=== PATIENT | male | born 1945 | race Caucasian/White ===

== ENCOUNTER 2020-05-29 13:34 | Outpatient (REF) | payer BC, SELFPAY ==
[2020-05-29 17:12] LABS: Alanine Aminotransferase 10 U/L (0-40); Albumin Level 4.7 g/dL (3.5-5.0); Alkaline Phosphatase 104 U/L (39-117); Anion Gap 14 (12-20); Aspartate Amino Transferase 11 U/L (5-37); Bilirubin Direct 0.3 mg/dL (0.0-0.5); Bilirubin Total 0.6 mg/dL (0.0-1.0); Blood Urea Nitrogen 28 mg/dL (9-16); Calcium 10.3 mg/dL (8.4-10.2); Carbon Dioxide 29 mmol/L (22-29); Chloride 103 mmol/L (96-108); Cholesterol 161 mg/dL; Estimated Glomerular Filt Rate 45; Glucose Fasting 134 mg/dL (60-99); HDL Cholesterol 64 mg/dL; LDL Cholesterol Calculated 67 mg/dl; Potassium 4.8 mmol/l (3.3-5.1); Sodium 141 mmol/L (135-145); Total Protein 7.9 g/dL (6.5-8.0); Triglycerides 151 mg/dL
== END 2020-05-29 13:35 | disposition home or self-care (01) ==
LOC: HO.HMGCLDS 13:34
PROVIDERS: PCP Internal Medicine; Visit Provider Internal Medicine Cardiovascular Disease
DX: E78.2 Mixed hyperlipidemia (principal)
CPT/HCPCS: 80048; 80061; 80076

== ENCOUNTER 2020-10-17 13:18 | Outpatient (REF) | payer BC, SELFPAY ==
[2020-10-17 16:31] LABS: MANUAL DIFF FLAG NO
[2020-10-17 16:35] LABS: Basophils Percent Auto 0.5 % (0-2); Eosinophils Absolute Auto 0.1 X10*3/uL (0.0-0.4); Eosinophils Percent Auto 2.3 % (0-4); Hematocrit 43.1 % (42-52); Hemoglobin 13.7 g/dl (14.0-18.0); Imm Gran Abs Auto 0.02 X10*3/uL (0.00-0.03); Imm Gran Pct Auto 0.4 % (0.0-0.4); Lymphocytes Absolute Auto 1.4 X10*3/uL (1.2-4.9); Lymphocytes Percent Auto 23.7 % (20-40); Mean Corpuscular HGB Conc 31.8 g/dl (31.0-36.0); Mean Corpuscular Hemoglobin 29.5 pg (27.0-33.0); Mean Corpuscular Volume 92.9 fL (80-98); Mean Platelet Volume 11.8 fL (9.4-12.4); Monocytes Absolute Auto 0.5 X10*3/uL (0.1-1.2); Monocytes Percent Auto 8.8 % (2-11); Neutrophils Absolute Auto 3.7 X10*3/uL (2.0-8.3); Neutrophils Percent Auto 64.3 % (45-73); Platelet Count 213 X10*3/uL (160-400); Red Blood Count 4.64 X10*6/uL (4.60-5.80); Red Cell Distribution Width 13.5 % (11.0-16.0); White Blood Count 5.7 X10*3/uL (4.8-10.8)
[2020-10-17 16:57] LABS: Alanine Aminotransferase 12 U/L (0-40); Albumin Level 4.4 g/dL (3.5-5.0); Alkaline Phosphatase 88 U/L (39-117); Anion Gap 13 (12-20); Aspartate Amino Transferase 11 U/L (5-37); Bilirubin Total 0.8 mg/dL (0.0-1.0); Blood Urea Nitrogen 24 mg/dL (9-16); Calcium 9.7 mg/dL (8.4-10.2); Carbon Dioxide 29 mmol/L (22-29); Chloride 105 mmol/L (96-108); Cholesterol 142 mg/dL; Estimated Glomerular Filt Rate 49; Glucose Fasting 123 mg/dL (60-99); HDL Cholesterol 61 mg/dL; LDL Cholesterol Calculated 63 mg/dl; Potassium 4.9 mmol/L (3.3-5.1); Sodium 142 mmol/L (135-145); Total Protein 7.3 g/dL (6.5-8.0); Triglycerides 94 mg/dL
[2020-10-17 17:11] LABS: Glucose Urine UA NEG (NEG); Leukocyte Esterase Urine NEG (NEG); Nitrite Urine NEG (NEG); PH 5.5 (5.0-8.0); Specific Gravity - Urine 1.025 (1.005-1.025); Urine Blood NEG (NEG); Urine Ketones NEG (NEG); Urine Protein TRACE MG/DL (NEG-TRACE)
[2020-10-17 17:13] LABS: Appearance Urine CLEAR; Color Urine YELLOW
[2020-10-17 17:20] LABS: Prostate Specific Antigen 2.42 ng/mL (<0.05-4.0); Thyroid Stimulating Hormone 1.04 uIU/mL (0.32-4.0); Vitamin D 25-OH Total 15.9 ng/mL (>30)
[2020-10-17 18:08] LABS: Folate 6.6 ng/mL (> or = 4.0); Vitamin B12 1709 pg/mL (200-900)
== END 2020-10-17 13:19 | disposition home or self-care (01) ==
LOC: HO.HMGCLDS 13:18
PROVIDERS: PCP Internal Medicine; Visit Provider Internal Medicine
DX: I25.10 Atherosclerotic heart disease of native coronary artery without angina pectoris (principal); I10 Essential (primary) hypertension; E78.00 Pure hypercholesterolemia, unspecified; J45.40 Moderate persistent asthma, uncomplicated; G62.9 Polyneuropathy, unspecified; Z12.5 Encounter for screening for malignant neoplasm of prostate
CPT/HCPCS: 36415; 80053; 80061; 81003; 82306; 82607; 82746; 84153; 84443; 85025

== ENCOUNTER 2022-09-02 08:38 | Outpatient (REF) | payer BC, SELFPAY ==
[2022-09-02 11:29] LABS: MANUAL DIFF FLAG NO
[2022-09-02 11:53] LABS: Basophils Absolute Auto 0.1 X10*3/uL (0.0-0.2); Basophils Percent Auto 0.9 % (0-2); Eosinophils Absolute Auto 0.2 X10*3/uL (0.0-0.4); Eosinophils Percent Auto 2.6 % (0-4); Hematocrit 43.6 % (42.0-52.0); Hemoglobin 13.8 g/dl (14.0-18.0); Imm Gran Abs Auto 0.02 X10*3/uL (0.00-0.03); Imm Gran Pct Auto 0.3 % (0.0-0.4); Lymphocytes Absolute Auto 1.5 X10*3/uL (1.2-4.9); Lymphocytes Percent Auto 25.7 % (20-40); Mean Corpuscular HGB Conc 31.7 g/dl (31.0-36.0); Mean Corpuscular Hemoglobin 29.6 pg (27.0-33.0); Mean Corpuscular Volume 93.6 fL (80.0-98.0); Mean Platelet Volume 11.8 fL (9.4-12.4); Monocytes Absolute Auto 0.5 X10*3/uL (0.1-1.2); Monocytes Percent Auto 8.7 % (2-11); Neutrophils Absolute Auto 3.6 x10*3/uL (2.0-8.3); Neutrophils Percent Auto 61.8 % (45-73); Platelet Count 227 X10*3/uL (160-400); Red Blood Count 4.66 X10*6/uL (4.60-5.80); Red Cell Distribution Width 13.4 % (11.0-16.0); White Blood Count 5.8 X10*3/uL (4.8-10.8)
[2022-09-02 12:18] LABS: Alanine Aminotransferase < 6 U/L (0-40); Albumin Level 4.2 g/dL (3.5-5.0); Alkaline Phosphatase 88 U/L (39-117); Anion Gap 13 (12-20); Aspartate Amino Transferase 8 U/L (5-37); Bilirubin Total 0.7 mg/dL (0.0-1.0); Blood Urea Nitrogen 21 mg/dL (9-16); Carbon Dioxide 27 mmol/L (22-29); Chloride 107 mmol/L (96-108); Cholesterol 135 mg/dL; Estimated Glomerular Filt Rate 51; Glucose Fasting 147 mg/dL (60-99); HDL Cholesterol 57 mg/dL; LDL Cholesterol Calculated 57 mg/dl; Potassium 3.9 mmol/L (3.3-5.1); Sodium 143 mmol/L (135-145); Total Protein 6.9 g/dL (6.5-8.0); Triglycerides 107 mg/dL
[2022-09-02 12:25] LABS: PSA,Total (Free>4and<10) 2.14 ng/mL (0.00-4.00); Thyroid Stimulating Hormone 0.99 uIU/mL (0.32-4.0)
[2022-09-02 13:45] LABS: Folate 5.8 ng/mL (> or = 4.0); Vitamin B12 1924 pg/mL (200-900)
== END 2022-09-02 08:39 | disposition home or self-care (01) ==
LOC: HO.HMGCLDS 08:38
PROVIDERS: PCP Internal Medicine; Visit Provider Internal Medicine
DX: Z13.89 Encounter for screening for other disorder (principal)
CPT/HCPCS: 36415; 80053; 80061; 82306; 82607; 82746; 84153; 84443; 85025

== ENCOUNTER 2022-12-30 13:52 | Outpatient (REF) | payer MEDICARE, BC, SELFPAY ==
--- NOTE | ~2022-12-30 | MR_ITS ---
EXAMINATION: MR BRAIN WITHOUT CONTRAST CLINICAL INFORMATION: Ataxia. COMPARISON: Head CT 09/20/2017. TECHNIQUE: Multiplanar, multisequence imaging of the brain was performed without intravenous contrast. FINDINGS: There is no acute infarction, hemorrhage, mass, or extra-axial fluid collection. A 4 mm focus of predominantly low T2 signal and associated susceptibility signal is seen within the right periatrial white matter compatible with a small cavernous malformation (series 8 image 14/25). There is no perilesional edema to suggest recent hemorrhage. Small chronic lacunar infarcts are seen in the bilateral thalami and in the right inferior cerebellum. Mild T2/FLAIR hyperintensity is seen within the cerebral white matter, presumably reflecting mild chronic microangiopathy. The ventricles and sulci are commensurate with mild degree of brain parenchymal volume loss noted. The major arterial flow voids appear preserved at the skull base. The orbits appear normal. There is paranasal sinus mucosal thickening including moderate mucosal thickening in the hypoplastic left maxillary sinus. MR/MR head/brain wo con IMPRESSION: 1. No acute infarct, mass lesion, intracranial hemorrhage, or evidence of hydrocephalus. 2. 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 No evidence of recent hemorrhage. 3. Small chronic lacunar infarcts in the bilateral thalami and right inferior cerebellum.
== END 2022-12-30 13:53 | disposition home or self-care (01) ==
LOC: HO.MRI 13:52
PROVIDERS: PCP Internal Medicine; Visit Provider Psychiatry & Neurology Neurology
DX: R27.0 Ataxia, unspecified (principal)
CPT/HCPCS: 70551

== ENCOUNTER 2023-01-07 13:01 | Outpatient (REF) | payer MEDICARE, BC, SELFPAY ==
[2023-01-07 14:56] LABS: Folate 6.2 ng/mL (> or = 4.0); Vitamin B12 1175 pg/mL (200-900)
[2023-01-11 18:18] LABS: Homocysteine 19.5 umol/L (<11.4)
[2023-01-14 16:48] LABS: Alpha-Tocopherol 13.6 mg/L (5.7-19.9); Beta-Gamma Tocopherol 1.8 mg/L (<=4.3)
== END 2023-01-07 13:02 | disposition home or self-care (01) ==
LOC: HO.LAB 13:01
PROVIDERS: PCP Internal Medicine; Visit Provider Psychiatry & Neurology Neurology
DX: G11.9 Hereditary ataxia, unspecified (principal)
CPT/HCPCS: 36415; 82607; 82746; 83090; 84446

== ENCOUNTER 2023-12-03 13:57 | Outpatient (REF) | payer MEDICARE, BC, SELFPAY ==
[2023-12-03 16:09] LABS: MANUAL DIFF FLAG NO
[2023-12-03 16:31] LABS: Basophils Absolute Auto 0.1 X10*3/uL (0.0-0.2); Basophils Percent Auto 0.9 % (0-2); Eosinophils Absolute Auto 0.2 X10*3/uL (0.0-0.4); Eosinophils Percent Auto 3.4 % (0-4); Hematocrit 41.2 % (42.0-52.0); Hemoglobin 13.2 g/dl (14.0-18.0); Imm Gran Abs Auto 0.02 X10*3/uL (0.00-0.03); Imm Gran Pct Auto 0.3 % (0.0-0.4); Lymphocytes Absolute Auto 1.6 X10*3/uL (1.2-4.9); Lymphocytes Percent Auto 24.1 % (20-40); Mean Corpuscular Hemoglobin 29.7 pg (27.0-33.0); Mean Corpuscular Volume 92.6 fL (80.0-98.0); Mean Platelet Volume 11.8 fL (9.4-12.4); Monocytes Absolute Auto 0.5 X10*3/uL (0.1-1.2); Monocytes Percent Auto 8.2 % (2-11); Neutrophils Absolute Auto 4.1 x10*3/uL (2.0-8.3); Neutrophils Percent Auto 63.1 % (45-73); Platelet Count 221 X10*3/uL (160-400); Red Blood Count 4.45 X10*6/uL (4.60-5.80); Red Cell Distribution Width 13.5 % (11.0-16.0); White Blood Count 6.6 X10*3/uL (4.8-10.8)
[2023-12-03 16:37] LABS: Alanine Aminotransferase 7 U/L (0-40); Albumin Level 3.9 g/dL (3.5-5.0); Alkaline Phosphatase 78 U/L (39-117); Anion Gap 11 (12-20); Aspartate Amino Transferase 9 U/L (5-37); Bilirubin Total 0.8 mg/dL (0.0-1.0); Blood Urea Nitrogen 24 mg/dL (9-16); Calcium 9.5 mg/dL (8.4-10.2); Carbon Dioxide 26 mmol/L (22-29); Chloride 109 mmol/L (96-108); Cholesterol 133 mg/dL (<200); Estimated Glomerular Filt Rate 54; Glucose Fasting 115 mg/dL (60-99); HDL Cholesterol 67 mg/dL (>40); LDL Cholesterol Calculated 49 mg/dL (<100); Potassium 3.8 mmol/L (3.3-5.1); Sodium 142 mmol/L (135-145); Total Protein 6.8 g/dL (6.5-8.0); Triglycerides 89 mg/dL (<150)
== END 2023-12-03 13:58 | disposition home or self-care (01) ==
LOC: HO.HMGCLDS 13:57
PROVIDERS: PCP Internal Medicine; Visit Provider Internal Medicine
DX: I25.10 Atherosclerotic heart disease of native coronary artery without angina pectoris (principal); E78.00 Pure hypercholesterolemia, unspecified; I10 Essential (primary) hypertension; J45.40 Moderate persistent asthma, uncomplicated; E55.9 Vitamin D deficiency, unspecified; R27.0 Ataxia, unspecified; G62.9 Polyneuropathy, unspecified
CPT/HCPCS: 36415; 80053; 80061; 85025

== ENCOUNTER 2024-06-02 16:59 | Emergency (ER) | payer MEDICARE, BC, SELFPAY ==
[2024-06-02 17:07] VITALS: BP 195/91; PULSE 60; O2SAT 98
--- NOTE | 2024-06-02 17:10 | ED_ITS ---
HPI - General Adult General Chief complaint: General Medical Stated complaint: rectal bleed Time Seen by Provider: 06/02/24 17:10 History of Present Illness ED Provider: Serafin GIBSON narrative: The patient is a 78-year-old male with a history of quadruple bypass and who also says he has poor balance. He says that he lives in a 2 family building on the 2nd floor. His granddaughter lives downstairs. He often eats with her. Apparently after eating a meal he got up and there seemed to be a lot of blood on his chair and his pants. There was concerned that he was having blood per rectum. They called an ambulance and he was brought to the hospital. He has no pain associated with this. He said he had a normal bowel movement this morning that was not associated with any blood. Stool was yellow in color. He has no abdominal pain. He says he takes a daily aspirin but no anticoagulation. No chest pain or shortness of breath. the patient states that he is often constipated. Related Data Allergies Allergy/AdvReac Type Severity Reaction Status Date / Time lisinopril [LISINOPRIL] Allergy Unknown UNKNOWN Verified 06/02/24 17:28 Review of Systems 2 Review of Systems: Yes all other systems are reviewed and are negative FORMERLY [facility], [facility] Social History Social History Advance Directives: No Advance Directives Information Provided: No Do you have a plan to hurt others: No Plan Physical Exam ED Vital Signs: Vital Signs - 24 hr 06/02/24 17:26 06/02/24 18:31 06/02/24 19:43 Temperature 98.1 F 98.2 F 98.0 F Pulse Rate 60 50 53 Respiratory Rate 18 14 16 Blood Pressure 162/72 H 139/58 L 129/79 Pulse Oximetry 97 98 98 Oxygen Delivery Method Room Air Room Air Room Air BMI result Body Mass Index 22.9 Const Other: The patient is a somewhat chronically ill-appearing 78-year-old male who was awake and alert and who does not appear acutely ill. He is pleasant and cooperative. HENMT Other: Face is symmetrical. Mucous membranes moist. Eyes General: appearance normal, both eyes and all related structures Neck Neck: Yes no JVD Resp Effort & Inspection: normal respiratory effort Auscultation: clear to auscultation bilaterally Cardio Rate: regular rate Rhythm: regular rhythm Heart sounds: S1 normal heart sound present and S2 normal heart sound present GI Other: Abdomen is soft and nontender The rectal exam revealed bright red blood around the anus. there was some fullness on the left side of the anus that may have been a recently ruptured hemorrhoid. On digital rectal exam there was soft yellow stool in the rectal vault. A small amount of fresh looking blood. Medical Decision Making Medical Decision Making [facility] Narrative: The patient is a 78-year-old male who had spontaneous rectal bleeding. He has no other associated symptoms. No abdominal pain, nausea, vomiting. He says he is often constipated. His stool is yellow and non melenic. I suspect the source of bleeding is immediately near the anus and is probably hemorrhoidal. the patient's hemoglobin is stable. the patient was observed for a couple of hours. I then repeated the rectal exam. There was no significant reaccumulation of blood or additional significant bleeding. He is hemodynamically stable. He last had a colonoscopy 5 years ago. I do not think he requires hospitalization. He says that Dr. Kidd is his gift wrapper. He is advised to use a stool softener over the weekend and contact the gastroenterology office early next week for prompt follow-up. He should return if he has significant ongoing bleeding. Lab Data 06/02/24 17:32 06/02/24 17:32 Labs: Lab Results 06/02/24 Range/Units 17:32 WBC 6.3 (4.8-10.8) X10*3/uL RBC 4.33 L (4.60-5.80) X10*6/uL Hgb 13.0 L (14.0-18.0) g/dl Hct 39.9 L (42.0-52.0) % MCV 92.1 (80.0-98.0) fL MCH 30.0 (27.0-33.0) pg MCHC 32.6 (31.0-36.0) g/dl RDW 14.1 (11.0-16.0) % Plt Count 209 (160-400) X10*3/uL MPV 10.3 (9.4-12.4) fL Immature Gran % (Auto) 0.3 (0.0-0.4) % Neut % (Auto) 69.0 (45-73) % Lymph % (Auto) 17.9 L (20-40) % [place] % (Auto) 10.5 (2-11) % Eos % (Auto) 1.7 (0-4) % Baso % (Auto) 0.6 (0-2) % Lymph # (Auto) 1.1 L (1.2-4.9) X10*3/uL [place] # (Auto) 0.7 (0.1-1.2) X10*3/uL Eos # (Auto) 0.1 (0.0-0.4) X10*3/uL Baso # (Auto) 0.0 (0.0-0.2) X10*3/uL Abs Immat Gran (auto) 0.02 (0.00-0.03) X10*3/uL Absolute Neuts (auto) 4.3 (2.0-8.3) x10*3/uL Absolute Nucleated RBC 0.000 (0.0-0.012) X10*3/uL Nucleated RBC % (auto) 0.0 (0.0-0.2) /100WBC Sodium 143 (135-145) mmol/L Potassium 4.0 (3.3-5.1) mmol/L Chloride 108 (96-108) mmol/L Carbon Dioxide 29 (22-29) mmol/L Anion Gap 10 L (12-20) BUN 21 H (9-16) mg/dL Creatinine 1.26 (0.5-1.4) mg/dL Estim Creat Clear Calc 46.6 Estimated GFR 55 Random Glucose 105 (60-115) mg/dL Calcium 10.1 D (8.4-10.2) mg/dL Total Bilirubin 0.5 (0.0-1.0) mg/dL Direct Bilirubin 0.2 (0.0-0.5) mg/dL AST 9 (5-37) U/L ALT 7 (0-40) U/L Alkaline Phosphatase 68 (39-117) U/L Total Protein 6.8 (6.5-8.0) g/dL Albumin 4.0 (3.5-5.0) g/dL Ethyl Alcohol < 10 mg/dL Discharge Plan Discharge Clinical Impression: Bright red blood per rectum Patient Disposition: Home, Self-Care Instructions: Hemorrhoids (ED), Rectal Bleeding (ED) Additional Instructions: I believe that the bleeding you have experienced today is coming from hemorrhoidal bleeding. It would be good for you to take something to make sure that you are keeping your stool soft. You may use Senokot S or MiraLax, both of which may be purchased [id number]. You may have some mild ongoing blood when you use the toilet over the next few days. Contact your gift wrapper and or your primary care doctor early next week to set up a follow up appointment for this problem. If you feel that your bleeding is significantly worse at any time please return to the emergency department. Referrals: Isaías Redd DO [Primary Care Provider] - (Red blood per rectum, presumably hemorrhoidal) Isaías Kidd MD [Physician] - (Bright red blood per rectum, presumably hemorrhoidal) Interventions: ED Discharge Assessment Last Done: 06/02/24 19:43 Discharge Date/Time: 06/02/24 20:08 Print Language: Chinese
[2024-06-02 17:26] VITALS: BP 162/72; PULSE 60; RESP 18; TEMP 36.7; O2SAT 97; BMI 22.9
[2024-06-02 17:46] LABS: MANUAL DIFF FLAG NO
[2024-06-02 17:52] LABS: Basophils Percent Auto 0.6 % (0-2); Eosinophils Absolute Auto 0.1 X10*3/uL (0.0-0.4); Eosinophils Percent Auto 1.7 % (0-4); Hematocrit 39.9 % (42.0-52.0); Imm Gran Abs Auto 0.02 X10*3/uL (0.00-0.03); Imm Gran Pct Auto 0.3 % (0.0-0.4); Lymphocytes Absolute Auto 1.1 X10*3/uL (1.2-4.9); Lymphocytes Percent Auto 17.9 % (20-40); Mean Corpuscular HGB Conc 32.6 g/dl (31.0-36.0); Mean Corpuscular Volume 92.1 fL (80.0-98.0); Mean Platelet Volume 10.3 fL (9.4-12.4); Monocytes Absolute Auto 0.7 X10*3/uL (0.1-1.2); Monocytes Percent Auto 10.5 % (2-11); Neutrophils Absolute Auto 4.3 x10*3/uL (2.0-8.3); Platelet Count 209 X10*3/uL (160-400); Red Blood Count 4.33 X10*6/uL (4.60-5.80); Red Cell Distribution Width 14.1 % (11.0-16.0); White Blood Count 6.3 X10*3/uL (4.8-10.8)
[2024-06-02 18:17] LABS: Alanine Aminotransferase 7 U/L (0-40); Alkaline Phosphatase 68 U/L (39-117); Anion Gap 10 (12-20); Aspartate Amino Transferase 9 U/L (5-37); Bilirubin Direct 0.2 mg/dL (0.0-0.5); Bilirubin Total 0.5 mg/dL (0.0-1.0); Blood Urea Nitrogen 21 mg/dL (9-16); Calcium 10.1 mg/dL (8.4-10.2); Carbon Dioxide 29 mmol/L (22-29); Chloride 108 mmol/L (96-108); Creatinine Clr Calc Pharmacy 46.6; Estimated Glomerular Filt Rate 55; Ethanol < 10 mg/dL; Glucose Random 105 mg/dL (60-115); Sodium 143 mmol/L (135-145); Total Protein 6.8 g/dL (6.5-8.0)
[2024-06-02 18:31] VITALS: BP 139/58; PULSE 50; RESP 14; TEMP 36.8; O2SAT 98
[2024-06-02 19:43] VITALS: BP 129/79; PULSE 53; RESP 16; TEMP 36.7; O2SAT 98
== END 2024-06-02 20:08 | disposition home or self-care (01) ==
PROVIDERS: Emergency Provider Emergency Medicine; PCP Internal Medicine
DX: K62.5 Hemorrhage of anus and rectum (principal)
CPT/HCPCS: 36415; 80048; 80076; 80307; 85025; 99283

== ENCOUNTER 2024-09-06 09:33 | Outpatient (AMB) | payer MEDICARE, BC, SELFPAY ==
--- NOTE | 2024-09-06 09:46 | MHC.PC.OV ---
Vital Signs 09/06/24 09:55 Height 5 ft 8 in Weight 141 lb BMI 21.4 BP 120/46 L Blood Pressure Location Rt brachial Pulse 66 Pulse Source Pulse Oximeter Temp 97.3 F Pulse Oximetry (%) 98 Intake Visit Reasons: Pre Op Dr Valle Intake Note: pre op clearence For Dr. Valle Allergies lisinopril [LISINOPRIL] Allergy (Unknown, Verified 09/06/24 12:06) UNKNOWN Medication List - Last Reconciled 09/06/24 by Sandie Carlos PA-C amlodipine 5 mg PO DAILY lovastatin 20 mg PO DAILY memantine 5 mg PO DAILY metoprolol succinate ER 50 mg PO DAILY Physical exam (Primary Care) Vital Signs: Last Vital Signs Temp 97.3 F 09/06/24 09:55 Pulse 66 09/06/24 09:55 BP 120/46 L 09/06/24 09:55 Pulse Ox 98 09/06/24 09:55 BP 120/46. Patient denies any cardiac related complaints. Condition is stable patient currently on antihypertensive medication. No changes. BMI result Body Mass Index 21.4 Patient has normal BMI of 21. Coding Level of Care Code New Pt Level 4 (99510) Complex EM visit Add On G2211 Diagnoses Follow-up exam, 3-6 months since previous exam Z09 CAD (coronary atherosclerotic disease) I25.10 Hypertension I10 Hyperlipidemia E78.5 Asthma J45.909 Vitamin D deficiency E55.9 Ataxia R27.0 Cerebellar atrophy G31.9 Neuropathy G62.9 Assessment & Plan Assessment & Plan (1) Follow-up exam, 3-6 months since previous exam: Code(s): Z09 - Encounter for follow-up examination after completed treatment for conditions other than malignant neoplasm Category: Medical Plan: Patient here for cataract clearance. Patient has a normal exam. Outpatient labs and EKG ordered. Will obtain records from [facility] Dr. Aguiar patient's project management manager pathophysiology. Will continue to monitor. (2) CAD (coronary atherosclerotic disease): Code(s): I25.10 - Atherosclerotic heart disease of [place] coronary artery without angina pectoris Category: Medical Plan: This condition is chronic and stable. Patient being followed by project management manager. Will retrieve records. Will continue to monitor. (3) Hypertension: Code(s): I10 - Essential (primary) hypertension Category: Medical Plan: This condition is chronic and stable. Blood pressure at goal 120/46. Patient currently on metoprolol, amlodipine taking as prescribed denies any complaints at this time. Will continue to monitor. (4) Hyperlipidemia: Code(s): E78.5 - Hyperlipidemia, unspecified Category: Medical Plan: Patient currently on lovastatin 20 mg taking as prescribed daily denies any complaints. Patient had normal triglyceride and lipid panel on 12/03/2023. Condition is chronic and stable will continue to monitor (5) Asthma: Code(s): J45.909 - Unspecified asthma, uncomplicated Category: Medical Plan: Patient denies any acute asthma related complaints. Condition is chronic and stable will continue to monitor. (6) Vitamin D deficiency: Code(s): E55.9 - Vitamin D deficiency, unspecified Category: Medical Plan: Last labs were in 2022. Will repeat. Condition is chronic and stable will continue to monitor. Patient not currently they vitamin-D supplement. 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 Patient utilizing standard walker. Will continue to monitor. (8) Cerebellar atrophy: Code(s): G31.9 - Degenerative disease of nervous system, unspecified Category: Medical Plan: This is chronic and stable. Patient utilizing standard walker. Will continue to monitor. (9) Neuropathy: Code(s): G62.9 - Polyneuropathy, unspecified Category: Medical Plan: This is chronic and stable. Will continue to monitor. Plan Plan - Schedule basic labs and EKG prior to surgery. - Obtain recent EKG and clearance note from project management manager if possible to avoid repeat testing. - Discuss the potential linkage and consult relevant specialists regarding exposure and cerebellar atrophy if necessary. - Manage hypertension and hyperlipidemia with established regimen of metoprolol, amlodipine, and lovastatin. - Proceed with the planned cataract surgery on September 18. Orders: Orders Comprehensive [place]. Panel Fast Today H26.9 - Unspecified cataract Complete Blood Count Auto Diff Today H26.9 - Unspecified cataract Liver Panel Today H26.9 - Unspecified cataract ECG 12 lead EKG Today H26.9 - Unspecified cataract, Z01.818 - Encounter for other preprocedural examination Vitamin B12 and Folate Today Z09 - Encounter for follow-up examination after completed treatment for conditions other than malignant neoplasm TSH reflex Free T4 Today Z09 - Encounter for follow-up examination after completed treatment for conditions other than malignant neoplasm Magnesium Today H26.9 - Unspecified cataract Lipid Panel Today H26.9 - Unspecified cataract Vitamin D 25-OH Total Today Z09 - Encounter for follow-up examination after completed treatment for conditions other than malignant neoplasm Patient Instructions: Patient Instructions - Proceed to the hospital for blood tests and EKG at your earliest convenience. - Monitor blood pressure regularly due to chronic hypertension. - Avoid excessive cheese to manage occasional constipation. - Follow through with cataract surgery plans and scheduled postoperative visits. - Discuss exposure concerns further if necessary for VA disability claims. Scribe Plan - Not visible on output: History of Present Illness The patient is a 78-year-old male presenting with a request for preoperative clearance for cataract surgery. He has known cataracts, particularly affecting the left eye, scheduled for removal on September 18. His visual impairment is noted as significant due to the severity of cataracts. The patient has a history of hypertension managed with metoprolol and amlodipine, showing stable blood pressure readings and no current symptoms such as chest pain or shortness of breath. Additionally, he is treated with a cholesterol-lowering agent, likely for hyperlipidemia, confirmed with atorvastatin intake. No necessary refills are required at this moment. He underwent an EKG recently with the project management manager in [place], which showed no significant abnormalities, with initial findings suggesting no need for intervention. The patient also reports longstanding cerebellar atrophy, potentially attributed to occupational exposure to jet fuel during his service. Symptoms related to this include chronic dizziness without any progressive deterioration mentioned. He discerns occasional constipation when consuming cheese but denies other gastrointestinal issues. Past conditions include previous bigeminy noted on monitoring but currently deemed insignificant. 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 - Family: Accompanied by granddaughter; family is actively involved in his care. - Nutritional Intake: Reports cheese consumption sometimes leads to constipation. - Functional Status: Experiences chronic dizziness due to cerebellar atrophy, potentially affecting balance. - Past Service: Concern about exposure to [employer] [place] and related chemicals with potential long-term health implications; previously stationed in [facility]. - Medication: Not on blood thinners; uses aspirin. Review of Systems - Cardiovascular: Denies chest pain, denies shortness of breath, denies palpitations. - Gastrointestinal: Reports constipation associated with cheese intake. - Neurological: Reports chronic dizziness. - Vision: Reports significant visual impairment due to cataracts. Physical Exam Appearance: Alert. Oriented X3. No acute distress. Head: Normal external exam. Normocephalic. Atraumatic. Eyes: Pupils are equal, round, and reactive to light. Extraocular movements intact. Conjunctiva and sclera normal. Eyelids normal. Blurry vision noted due to cataracts in the left eye. Ears: External auditory canal normal. Tympanic membranes normal. Throat: Pharynx normal. Uvula midline. Moist mucous membranes. Neck: Normal inspection. Neck supple. Full range of motion. No adenopathy. Thyroid Normal. No meningeal signs. No neck mass noted. Cardiovascular: Normal heart rate and rhythm. Heart sound normal. No murmurs noted. Pulses normal throughout. Blood pressure noted to be a little low at 124. Respiratory: No respiratory distress. Painless inspiration. Breath sounds normal. No wheezes/rales/rhonchi noted. Chest nontender. No accessory muscle usage noted or decreased air movement noted. Abdomen: Soft and nontender. No distention noted. No organomegaly noted. No visible injury noted. Back: No costovertebral angle tenderness. Full range of motion noted. Skin: Skin warm and dry. Normal skin color. Normal skin turgor. No rashes/lesions/lacerations noted. Extremities: No lower extremity edema. Extremities exhibit normal range of motion. Extremities nontender. Neuro: Oriented X 3. No motor deficit. No sensory deficit. Reflexes normal. Results - Labs: Patient had labs on 06/02/2024 which were discussed. Patient has chronic anemia. All other labs are within normal limits. Patient had lipid panel profile on 12/03/2023 which was within normal limits. - Tests and Diagnostics: Recent EKG performed by a project management manager in [place] showed no significant abnormalities. Plan - Schedule basic labs and EKG prior to surgery. - Obtain recent EKG and clearance note from project management manager if possible to avoid repeat testing. - Discuss the potential linkage and consult relevant specialists regarding exposure and cerebellar atrophy if necessary. - Manage hypertension and hyperlipidemia with established regimen of metoprolol, amlodipine, and lovastatin. - Proceed with the planned cataract surgery on September 18. Patient was informed and verbally consented to the use of an ambient scribe for clinic note documentation during this visit. Discussion Notes During our discussion, I clarified the need for preoperative clearance due to his scheduled cataract surgery. We reviewed the importance of achieving an optimal state of health before the procedure, including controlling his blood pressure and lipid levels. I emphasized the utility of obtaining recent cardiac tests and notes from his project management manager to streamline preoperative preparations. We briefly discussed the history of cerebellar atrophy and chemical exposure, acknowledging the complexity of resolution regarding exposure effects and the potential impacts on health. Specific follow-up visits will be coordinated respectively regarding his surgery and financial support from the [facility]. Consent was presumed generally for progression upon the understanding of the surgical and medical plans detailed. Patient Instructions - Proceed to the hospital for blood tests and EKG at your earliest convenience. - Monitor blood pressure regularly due to chronic hypertension. - Avoid excessive cheese to manage occasional constipation. - Follow through with cataract surgery plans and scheduled postoperative visits. - Discuss exposure concerns further if necessary for VA disability claims.
[2024-09-06 09:55] VITALS: BP 120/46; PULSE 66; TEMP 36.3; O2SAT 98; BMI 21.4
== END 2024-09-06 10:31 | disposition home or self-care (01) ==
LOC: HO.HMCSH 09:33
PROVIDERS: PCP Internal Medicine; Visit Provider Physician Assistant Medical
DX: Z09 Encounter for follow-up examination after completed treatment for conditions other than malignant neoplasm (principal); I25.10 Atherosclerotic heart disease of native coronary artery without angina pectoris; I10 Essential (primary) hypertension; E78.5 Hyperlipidemia, unspecified; J45.909 Unspecified asthma, uncomplicated; E55.9 Vitamin D deficiency, unspecified; R27.0 Ataxia, unspecified; G31.9 Degenerative disease of nervous system, unspecified; G62.9 Polyneuropathy, unspecified

== ENCOUNTER → 2024-09-06 09:33 | Outpatient (BNVA) | payer MEDICARE, BC, SELFPAY | PROVIDERS: PCP Internal Medicine; Visit Provider Physician Assistant Medical | DX: Z01.818 Encounter for other preprocedural examination (principal); I25.10 Atherosclerotic heart disease of native coronary artery without angina pectoris; I10 Essential (primary) hypertension; E78.5 Hyperlipidemia, unspecified; J45.909 Unspecified asthma, uncomplicated; E55.9 Vitamin D deficiency, unspecified; R27.0 Ataxia, unspecified; G31.9 Degenerative disease of nervous system, unspecified; G62.9 Polyneuropathy, unspecified; Z09 Encounter for follow-up examination after completed treatment for conditions other than malignant neoplasm | CPT/HCPCS: 99202 ==

== ENCOUNTER 2024-09-12 12:35 | Outpatient (REF) | payer MEDICARE, BC, SELFPAY ==
--- NOTE | 2024-09-12 12:41 | ECG_ITS ---
Test Reason : PREOP Blood Pressure : */* mmHG Vent. Rate : 63 BPM Atrial Rate : 63 BPM P-R Int : 206 ms QRS Dur : 110 ms QT Int : 400 ms P-R-T Axes : * -25 65 degrees QTcB Int : 409 ms Sinus rhythm with occasional Premature ventricular complexes Minimal voltage criteria for LVH, may be normal variant ( R in aVL ) Borderline ECG When compared with ECG of 07-Aug-2003 11:43, Premature ventricular complexes are now Present QRS axis Shifted left ST now depressed in Inferior leads PATIENT SITTING UP IN WHEEL CHAIR. Referred By: Sandie Carlos Electronically Signed By: JAD ESTRELLA MD
[2024-09-12 12:56] LABS: MANUAL DIFF FLAG NO
[2024-09-12 13:17] LABS: Basophils Absolute Auto 0.1 X10*3/uL (0.0-0.2); Basophils Percent Auto 0.8 % (0-2); Eosinophils Absolute Auto 0.2 X10*3/uL (0.0-0.4); Eosinophils Percent Auto 2.7 % (0-4); Hematocrit 40.1 % (42.0-52.0); Hemoglobin 13.1 g/dl (14.0-18.0); Imm Gran Abs Auto 0.03 X10*3/uL (0.00-0.03); Imm Gran Pct Auto 0.5 % (0.0-0.4); Lymphocytes Percent Auto 16.5 % (20-40); Mean Corpuscular HGB Conc 32.7 g/dl (31.0-36.0); Mean Corpuscular Hemoglobin 30.3 pg (27.0-33.0); Mean Corpuscular Volume 92.8 fL (80.0-98.0); Mean Platelet Volume 10.3 fL (9.4-12.4); Monocytes Absolute Auto 0.5 X10*3/uL (0.1-1.2); Monocytes Percent Auto 7.3 % (2-11); Neutrophils Absolute Auto 4.5 x10*3/uL (2.0-8.3); Neutrophils Percent Auto 72.2 % (45-73); Platelet Count 236 X10*3/uL (160-400); Red Blood Count 4.32 X10*6/uL (4.60-5.80); Red Cell Distribution Width 13.9 % (11.0-16.0); White Blood Count 6.2 X10*3/uL (4.8-10.8)
--- OUTSIDE RECORDS SUMMARY | 2024-09-12 14:11 | XMS_ITS ---
Author Organization Isaías Redd DO [facility] Address [address], [place] [id number] Care Team Providers Care Blanket Maker Name Role Phone Isaías Redd Primary Care Provider REASON FOR VISIT pre-operative Encounters Encounter Location Date Provider Diagnosis Isaías Redd DO [address] [id number] 09/06/2024 Isaías Redd PLAN OF TREATMENT No Information
--- OUTSIDE RECORDS SUMMARY | 2024-09-12 14:11 | XMS_ITS ---
Author Organization Isaías Redd DO, FACP Address [address], [place] [id number] Care Team Providers Care Bench Molder Apprentice Name Role Phone Isaías Redd Primary Care Provider ALLERGIES Allergen (clinical drug ingredient) Drug/Non Drug Allergy documented on EMR Reaction Allergy Type Onset Date Status lisinopril Lisinopril cough Drug Allergy Activ e REASON FOR VISIT 6 month f/u, Follow up hypertension, hypercholesterolemia MEDICATIONS Medication SIG (Take, Route, Frequency, Duration) Notes Start Date End Date Status Albuterol Sulfate HFA 108 (90 Base) MCG/ACT 2 puffs as needed Inhalation every 4 hrs Active Vitamin D 50 MCG (2000 UT) 1 capsule Ora lly Once a day Active Cyanocobalamin 1000 MCG 1 tablet Orally Once a day Active Probiotic 250 MG 1 capsule Orally Onc e a day Active Amoxicillin 500 MG 4 capsules one time Orally Once a day 09/24/2015 Active Aspirin 81 MG 1 tablet Orally Once a day Active Lovastatin 20 MG 1 tablet with the evening meal Orally Once a day Active Singulair 10 MG 1 tablet in the even ing Orally Once a day Active Mometasone Furoate 110 MCG/INH 2 puffs Inhalation Twice a day Active Metoprolol Succinate ER 50 MG 1 tablet Orally Once a day Active amLODIPine Besylate 5 MG 1 tablet Orally Once a day Active SOCIAL HISTORY Tobacco Use: Social History Observation Description Date Details (start date - stop date) Former Smoker NA - NA Sex Assigned At : Social History Observation Description Sex Assigned At Unknown Tobacco Use/Smoking Question Answer Notes Patient is a former smoker How long has it been since y ou last smoked? > 10 years Additional Findings: Tobacco Non-User Fo rmer smoker, currently using no form of tobacco Alcohol Screen Question Answer Notes Did you have a drink containing alcohol in the p ast year? No Points 0 Interpretation Negative VITAL SIGNS BMI 22.80 kg/m2 06/06/2024 Blood pressure systolic 134 mm Hg 06/06/20 24 Blood pressure diastolic 72 mm Hg 024 Height 68 in 06/06/2024 Weight 150 lbs 06/06/2024 Encounters Encounter Location Date Provider Diagnosis Isaías Redd DO, [address] [id number] 06/06/2024 Isaías Redd Coronary artery dise ase involving [place] coronary artery of [place] heart without angina pectoris I25.10 ; Essential hypertension I10 ; Hypercholesterolemia E78.00 ; Moderate persistent asthma without complication J45.40 ; Vitamin D deficiency E55.9 ; Ataxia R27.0 and Neuropathy G62.9 ASSESSMENTS Encounter Date Diagnosis Assessment Notes Treatment Notes Treatment Clinical Notes 06/06/2024 Coronary artery dise ase involving [place] coronary artery of [place] heart without angina pectoris (ICD-10 - I25.10) 06/06/2024 Essential hypertensi on (ICD-10 - I10) 06/06/2024 Hypercholesterolemia (ICD-10 - E78.00) 06/06/2024 Moderate persistent asthma without complication (ICD-10 - J45.40) 06/06/2024 Vitamin D deficiency (ICD-10 - E55.9) 06/06/2024 Ataxia (ICD-10 - R27.0) 06/06/2024 Neuropathy (ICD-10 - G62.9) PLAN OF TREATMENT Medication Medication Name Sig Start Date Stop Date Notes Albuterol Sulfate HFA 108 (9 0 Base) MCG/ACT 2 puffs as needed Inhalation every 4 hrs Vitamin D 50 MCG (2000 UT) 1 capsule Orally Once a day Cyanocobalamin 1000 MCG 1 tablet Orally Once a day Probiotic 250 MG 1 capsule Orally Once a day Amoxicillin 500 MG 4 capsules one time Orally Once a day 09/24/2015 Aspirin 81 MG 1 tablet Orally Once a day Lovastatin 20 MG 1 tablet with the ev ening meal Orally Once a day Singulair 10 MG 1 tablet in the even ing Orally Once a day Mometasone Furoate 110 MCG/INH 2 puffs I nhalation Twice a day Metoprolol Succinate ER 50 MG 1 tablet Orally Once a day amLODIPine Besylate 5 MG 1 tablet Orally Once a day Next Appt Details Follow Up: 6 Months, Reason: follow up visit Progress Notes * Examination Category Sub-Category Detail Notes General Examination GENERAL APPEARANCE: in no ac barrow distress, well developed, well nourished HEAD: normocephalic, atrau matic HEART: no murmurs, regular rate and rhythm, S1, S2 normal, frequent extrasystole LUNGS: clear to auscultatio n bilaterally ABDOMEN: normal, bowel sounds present, soft, nontender, nondistended NEUROLOGIC: gait ataxic SKIN: warm and dry EXTREMITIES: no edema PSYCH: alert, oriented, cog nitive function intact
--- OUTSIDE RECORDS SUMMARY | 2024-09-12 14:11 | XMS_ITS ---
Author Organization [facility] Address [address], [place] [id number] Care Team Providers Care Meeting Specialist Name Role Phone Isaías Redd Primary Care Provider REASON FOR VISIT FYI only Encounters Encounter Location Date Provider Diagnosis Isaías Redd DO, [address] [phone] 12/08/2023 Isaías Redd PLAN OF TREATMENT No Information
[2024-09-12 14:21] LABS: Alanine Aminotransferase < 6 U/L (0-40); Albumin Level 3.7 g/dL (3.5-5.0); Alkaline Phosphatase 79 U/L (39-117); Anion Gap 10 (12-20); Aspartate Amino Transferase 11 U/L (5-37); Bilirubin Direct 0.2 mg/dL (0.0-0.5); Bilirubin Total 0.5 mg/dL (0.0-1.0); Blood Urea Nitrogen 19 mg/dL (9-16); Calcium 8.9 mg/dL (8.4-10.2); Carbon Dioxide 28 mmol/L (22-29); Chloride 109 mmol/L (96-108); Cholesterol 116 mg/dL (<200); Estimated Glomerular Filt Rate 55; Glucose Fasting 131 mg/dL (60-99); HDL Cholesterol 67 mg/dL (>40); LDL Cholesterol Calculated 39 mg/dL (<100); Magnesium 1.9 mg/dL (1.6-2.6); Potassium 4.1 mmol/L (3.3-5.1); Sodium 143 mmol/L (135-145); Total Protein 6.8 g/dL (6.5-8.0); Triglycerides 51 mg/dL (<150)
[2024-09-12 14:23] LABS: TSH reflex Free T4 0.57 uIU/mL (0.32-4.0); Vitamin D 25-OH Total 43.4 ng/mL (>30)
[2024-09-12 14:26] LABS: Folate 8.2 ng/mL (> or = 4.0); Vitamin B12 955 pg/mL (200-900)
== END 2024-09-12 12:36 | disposition home or self-care (01) ==
LOC: HO.LAB 12:35
PROVIDERS: PCP Physician Assistant Medical; Visit Provider Physician Assistant Medical
DX: Z01.818 Encounter for other preprocedural examination (principal); I49.3 Ventricular premature depolarization; H26.9 Unspecified cataract; Z09 Encounter for follow-up examination after completed treatment for conditions other than malignant neoplasm
CPT/HCPCS: 36415; 80053; 80061; 80076; 82248; 82306; 82607; 82746; 83735; 84443; 85025; 93005

== ENCOUNTER → 2024-09-12 12:41 | Outpatient (BNV) | payer MEDICARE, BC, SELFPAY | PROVIDERS: PCP Physician Assistant Medical; Visit Provider Internal Medicine Cardiovascular Disease | DX: Z01.818 Encounter for other preprocedural examination (principal) | CPT/HCPCS: 93010 ==

== ENCOUNTER 2024-09-14 17:30 | Emergency (ER) | payer MEDICARE, BC, SELFPAY ==
--- NOTE | ~2024-09-14 | XR_ITS ---
CLINICAL HISTORY: fall Two views of the left humerus. Findings: Patient positioning mildly limits the study. No definite acute fracture or malalignment is seen. Impression: No definite acute fractures. This document has been electronically signed by: David Nobles MD on 09/14/2024 19:03:49
--- NOTE | ~2024-09-14 | XR_ITS ---
CLINICAL HISTORY: fall Three views left shoulder. Findings: There are left 3rd and 4th rib fractures that could be acute. Otherwise no acute fracture is seen. No dislocation is identified. 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 Impression: Left 3rd and 4th rib fractures could be acute. This document has been electronically signed by: David Nobles MD on 09/14/2024 19:06:39
--- NOTE | ~2024-09-14 | CT_ITS ---
CLINICAL HISTORY: L rib fx seen on XR, fall CT of the chest without contrast. No comparison. Findings: No pleural or pericardial effusion. Previous coronary bypass. The ascending aorta is upper limits of normal in diameter. Emphysema. No pneumothorax. There is ill-defined atelectasis in the lower lobes. Cholecystectomy. There are acute left 3rd through 6th rib fractures. There is an acute fracture through the base of the left coracoid process. Impression: Acute fractures of the left 3rd through 6th ribs. Fracture base of the left coracoid process. Ascending aorta upper limits of normal in diameter. Emphysema. This document has been electronically signed by: David Nobles MD on 09/14/2024 20:43:44
[2024-09-14 17:40] VITALS: BP 168/88; BP 172/90; PULSE 70; PULSE 81; RESP 18; TEMP 37; O2SAT 98; O2SAT 99; BMI 21.3
--- NOTE | 2024-09-14 17:45 | ECG_ITS ---
Test Reason : L SHOULDER PAIN Blood Pressure : */* mmHG Vent. Rate : 70 BPM Atrial Rate : 70 BPM P-R Int : 248 ms QRS Dur : 108 ms QT Int : 378 ms P-R-T Axes : * -32 64 degrees QTcB Int : 408 ms Sinus rhythm with 1st degree A-V block with Premature supraventricular complexes Left axis deviation Moderate voltage criteria for LVH, may be normal variant ( R in aVL , [place] product ) Nonspecific ST abnormality Abnormal ECG When compared with ECG of 12-Sep-2024 12:58, Premature ventricular complexes are no longer Present Premature supraventricular complexes are now Present WA interval has increased Referred By: Generic ED Physician Electronically Signed By: JAD ESTRELLA MD
--- NOTE | 2024-09-14 17:55 | ED.EXTPRO ---
HPI - Extremity Problem General Chief complaint: Extremity Injury, Upper Stated complaint: DIZZINESS, SHOULDER PAIN POST FALL 11 DAYS AGO Time Seen by Provider: 09/14/24 17:44 Source: patient, EMS, RN notes reviewed and old records reviewed Mode of arrival: EMS History of Present Illness ED Provider: Jerri Tran PA-C HPI Narrative: 78-year-old male with a past medical history of ataxia, asthma, HLD, HTN, CAD, cerebral atrophy, presenting to the ED via EMS complaining of left shoulder pain s/p mechanical trip and fall 11 days ago at home. States tripped and fell over his dog, denies symptoms prior to fall off, reports chronically off balance, unchanged. States landed on left shoulder, denies head trauma or LOC. Denies anticoagulation use. Denies injury to other area, headache, neck/back pain, CP/SOB, weakness. Related Data Home Medications ?Medication ?Instructions ?Recorded ?Confirmed amlodipine 5 mg tablet 5 mg PO DAILY 09/06/24 09/06/24 lovastatin 20 mg tablet 20 mg PO DAILY 09/06/24 09/06/24 memantine 5 mg tablet 5 mg PO DAILY 09/06/24 09/06/24 Previous Rx's ?Medication ?Instructions ?Recorded metoprolol succinate 50 mg 50 mg PO DAILY #90 tabs 09/04/24 tablet,extended release 24 hr acetaminophen 500 mg tablet 500 mg PO Q6H PRN fever or pain 09/14/24 (Tylenol Extra Strength) #14 tabs ibuprofen 800 mg tablet 800 mg PO Q8H PRN pain #14 tabs 09/14/24 lidocaine 5 % topical patch 1 patch topical DAILY PRN pain #30 09/14/24 (Lidoderm) ea Allergies Allergy/AdvReac Type Severity Reaction Status Date / Time lisinopril [LISINOPRIL] Allergy Unknown UNKNOWN Verified 09/14/24 17:45 Review of Systems Review of Systems: Yes all other systems are reviewed and are negative Constitutional: Constitutional: Reports as per [facility] Past Medical History Attestation statement: The following information was validated with the patient. Source: old records reviewed Social History Social History Smoked in Last 30 Days: No Use of substances other than those prescribed or required for medical reasons: No Advance Directives: No Advance Directives Information Provided: No Do you have a plan to hurt others: No Plan Physical Exam Vital Signs: Vital Signs: Last Vital Signs Temp 98.2 F 09/14/24 20:09 Pulse 68 09/14/24 20:09 Resp 16 09/14/24 20:09 BP 163/72 H 09/14/24 20:09 Pulse Ox 98 09/14/24 20:09 O2 Del Method Room Air 09/14/24 20:09 BMI result Body Mass Index 21.3 Const: General: cooperative, healthy appearing and no acute distress Orientation/consciousness: patient oriented x3 Limitations: no limitations HEENT: Head: Yes normal to inspection and Yes atraumatic Ears: hearing grossly normal bilaterally General nose exam: Normal external nose present Face and sinus: Yes normal facial exam Eyes: General: appearance normal, both eyes and all related structures EOM: EOMs intact bilaterally Neck: Neck: Yes normal visual inspection and Yes no meningeal signs Resp: Effort & Inspection: normal respiratory effort and no respiratory distress Cardio: Rate: regular rate Heart sounds: S1 normal heart sound present and S2 normal heart sound present GI: Inspection: Yes normal to inspection Palpation (GI): Soft to palpation, nontender, no guarding and not rigid Back/Spine/Pelvis: Other: No midline cervical/thoracic/lumbar spinous tenderness/step-off or deformity Skin: Rashes: no rashes Wounds: no wounds Neuro: General: patient oriented x3, tone normal and no meningeal signs Cranial nerves: Yes CN's II-XII intact bilaterally Gait exam (Neuro): Normal gait present Extrem: Other: Left shoulder without appreciable deformity. Mildly tender to palpation. Limited ROM secondary to pain. Neurovascularly intact distally. No erythema or warmth General: Yes normal to inspection Course Course Course Narrative: XR humerus LT Impression: No definite acute fractures. XR shoulder LT min 2V Impression: Left 3rd and 4th rib fractures could be acute > On this racebook writer's view of x-ray appears like there could be fracture. Case discussed with ED attending Dr. Banuelos who also looked at imaging & recommended obtaining CT for further eval. Will obtain CT shoulder and chest to evaluate shoulder/ribs >> patient agreeable to plan. No appreciable rib tenderness on physical exam CT chest wo IV con Impression: Acute fractures of the left 3rd through 6th ribs. Fracture base of the left coracoid process. Ascending aorta upper limits of normal in diameter. Emphysema > patient placed in sling > case discussed with trauma surgeon Dr. Ulloa at [facility] who recommended performing incentive spirometer. States with patient this far out from injury unlikely needs admission. Will perform incentive spirometer and re-consult. -patient successfully performed 2000-2500ml 10x with incentive spirometer. This was discussed with Dr. Ulloa at [facility] who states patient should be safe for discharge home. Family is at bedside, family and patient feel comfortable with plan of discharge. Patient will be in sling. Recommended close orthopedic follow-up. Patient only agreeable to take ibuprofen/Tylenol and lidocaine patches for pain Results discussed with patient including worrisome signs and symptoms and strict return precautions, and when to return to the emergency department. They verbalized understanding and feel safe for discharge at this time. Medications Administered Discontinued Medications Generic Name Dose Route Start Last Admin Trade Name Freq PRN Reason Stop Dose Admin Cyclobenzaprine HCl 5 mg 09/14/24 17:59 09/14/24 18:41 Cyclobenzaprine Hcl 5 Mg Tablet PO 09/14/24 18:00 5 mg ONCE ONE Administration Medical Decision Making Medical Decision Making MDM Narrative: 78-year-old male with a past medical history of ataxia, asthma, HLD, HTN, CAD, cerebral atrophy, presenting to the ED via EMS complaining of left shoulder pain s/p mechanical trip and fall 11 days ago at home. On exam vital signs stable, NAD, nontoxic appearing, physical exam as noted above. Concern for fracture vs tendon/ligamental or rotator cuff injury. Lower suspicion for atypical ACS. No evidence of septic joint/arthritis. Plan: EKG, CXR, pain control, re-evaluate Please refer to course for remaining clinical decision making, interpretation of labs/imaging results, and discussions with consultants and/or family members. Differential Diagnosis Differential Diagnoses: The differential diagnosis associated with the presentation includes As above Admission/Observation Consideration of admission/observation: Escalation of care including admission/observation considered Independent Interpretation I performed an independent interpretation of an: EKG and Plain X-Ray Radiology Impression Discussion of test interpretation with radiology: I have reviewed the radiologist's reading. Independent Historian Clinical information obtained from an independent historian. History obtained from or confirmed by: EMS External Record Review External record reviewed: Inpatient record, Office record, Outpatient record, Prior outpatient labs, Prior outpatient radiology, Primary care record and Outside ED record Tests considered The following testing was considered but not selected: As above Prescription Management I considered prescription management with: Pain Medication Chronic Conditions Patient?s care impacted by: Other Social Determinants Patient?s care significantly limited by Social Determinants of Health including: Other Social Determinant of Health Discharge Plan Discharge Clinical Impression: Multiple fractures of ribs, Closed coracoid process fracture Patient Disposition: Home, Self-Care Instructions: Arm Fracture in Adults (ED), Rib Fracture (ED) Additional Instructions: You have multiple rib fractures of your left 3rd through 6th ribs as well as your left coracoid process You need to wear sling, you may take it off to sleep, and take off to shower Please take ibuprofen, Tylenol, and lidocaine patches for pain You need to use incentive spirometer at least 3 times daily as discussed in the emergency department Please have close follow up with Orthopedics and your primary care doctor. Call tomorrow to make an appointment If her pain persists or worsens/becomes unbearable, you develop cough, fever, shortness of breath return to the emergency room Prescriptions: New ibuprofen 800 mg tablet 800 mg PO Q8H PRN (Reason: pain) Qty: 14 0RF acetaminophen [Tylenol Extra Strength] 500 mg tablet 500 mg PO Q6H PRN (Reason: fever or pain) Qty: 14 0RF lidocaine [Lidoderm] 5 % adhesive patch,medicated 1 patch topical DAILY MDD remove after 12 hours PRN (Reason: pain) Qty: 30 0RF Rx Instructions: leave on most painful area for up to 12 hrs No Action metoprolol succinate 50 mg tablet extended release 24 hr 50 mg PO DAILY Qty: 90 1RF memantine 5 mg tablet 5 mg PO DAILY lovastatin 20 mg tablet 20 mg PO DAILY amlodipine 5 mg tablet 5 mg PO DAILY Referrals: [facility] [Provider Group] - 5 days Physician,Unknown J [Primary Care Provider] - Print Language: Uzbek
[2024-09-14] MEDS: Cyclobenzaprine HCl 5 MG TABLET PO (18:41)
[2024-09-14 18:42] VITALS: BP 168/88; PULSE 73; RESP 18; TEMP 36.8; O2SAT 98
--- NOTE | 2024-09-14 18:43 | PC.NURSE ---
follows commands. family at bedside. states pt is at baseline. axox3. no deformity noted.
[2024-09-14 18:55] VITALS: BP 154/72; PULSE 69; RESP 18; O2SAT 98
[2024-09-14 20:09] VITALS: BP 163/72; PULSE 68; RESP 16; TEMP 36.8; O2SAT 98
[2024-09-14 22:07] VITALS: BP 172/66; PULSE 83; RESP 16; TEMP 36.8; O2SAT 97
[2024-09-14 22:29] VITALS: BP 172/66; PULSE 83; RESP 16; TEMP 36.8; O2SAT 97
== END 2024-09-14 22:30 | disposition home or self-care (01) ==
PROVIDERS: Emergency Provider Emergency Medicine Emergency Medical Services
DX: S22.42XA Multiple fractures of ribs, left side, initial encounter for closed fracture (principal); S42.92XA Fracture of left shoulder girdle, part unspecified, initial encounter for closed fracture; W01.0XXA Fall on same level from slipping, tripping and stumbling without subsequent striking against object, initial encounter; Y93.9 Activity, unspecified; Y92.9 Unspecified place or not applicable; Y99.9 Unspecified external cause status; M25.512 Pain in left shoulder
CPT/HCPCS: 71250; 73030; 73060; 93005; 99285

== ENCOUNTER → 2024-09-14 17:45 | Outpatient (BNV) | payer MEDICARE, BC, SELFPAY | PROVIDERS: Emergency Provider Emergency Medicine Emergency Medical Services; Visit Provider Internal Medicine Cardiovascular Disease | DX: R94.31 Abnormal electrocardiogram [ECG] [EKG] (principal) | CPT/HCPCS: 93010 ==

== ENCOUNTER → 2024-09-14 18:30 | Outpatient (BNV) | payer MEDICARE, BC, SELFPAY | PROVIDERS: Emergency Provider Emergency Medicine Emergency Medical Services; Visit Provider Radiology Diagnostic Radiology | DX: S22.42XA Multiple fractures of ribs, left side, initial encounter for closed fracture (principal); J43.9 Emphysema, unspecified; M25.512 Pain in left shoulder; S42.132A Displaced fracture of coracoid process, left shoulder, initial encounter for closed fracture | CPT/HCPCS: 71250; 73030; 73060 ==

== ENCOUNTER 2024-09-27 15:58 | Outpatient (REF) | payer MEDICARE, BC, SELFPAY | END 2024-09-27 15:59 | disposition home or self-care (01) | LOC: HO.HOSX 15:58 | PROVIDERS: Visit Provider Physician Assistant | DX: Z13.89 Encounter for screening for other disorder (principal) ==

== ENCOUNTER 2024-11-03 17:43 | Emergency (ER) | payer MEDICARE, BC, SELFPAY ==
--- NOTE | ~2024-11-03 | CT_ITS ---
CLINICAL HISTORY: fall, head strike, pain CT cervical spine without contrast Comparison: None Findings: Normal vertebral body alignment. Multilevel degenerative changes. No acute fractures or dislocations. Visualized intracranial contents are unremarkable. No cervical fluid collections or masses. Lung apices are clear. IMPRESSION: 1. No acute cervical spine injury. This document has been electronically signed by: Debra Mondragon MD on 11/03/2024 20:28:51
--- NOTE | ~2024-11-03 | XR_ITS ---
CLINICAL HISTORY: fall, injury 2 view left forearm Comparison: None Findings: No fractures or dislocations. No joint effusion. Surgical clips in the dorsal forearm. IMPRESSION: No acute fracture. This document has been electronically signed by: Debra Mondragon MD on 11/03/2024 20:11:26
--- NOTE | ~2024-11-03 | XR_ITS ---
CLINICAL HISTORY: fall, injury 2 view right forearm Comparison: None Findings: Lucency in the region of the trapezium and trapezoid at the base of the 2nd metatarsal, possibly artifact from overlapping bones however nondisplaced fracture can not be excluded. Correlate for point tenderness. Radius and ulna are intact. No dislocation. IMPRESSION: Lucency in the region of the trapezium and trapezoid at the base of the 2nd metatarsal, possibly artifact from overlapping bones however nondisplaced fracture can not be excluded. Correlate for point tenderness. This document has been electronically signed by: Debra Mondragon MD on 11/03/2024 20:09:37
--- NOTE | ~2024-11-03 | CT_ITS ---
CLINICAL HISTORY: fall, head strike, pain CT head without contrast Comparison: MR/SR - MR HEAD/BRAIN WO CON - 12/30/22 14:[address]/SR - BRAIN WO IV CONTRAST [id number] - 09/20/17 11:16 EST Findings: No intra-axial mass, midline shift, hydrocephalus, or acute hemorrhage. Diffuse volume loss. Periventricular and subcortical white matter hypoattenuation likely chronic small-vessel ischemic changes. Intracranial atherosclerosis. Mucosal thickening in the ethmoid air cells. Left frontal scalp and periorbital hematoma. No skull fracture. IMPRESSION: No acute intracranial findings. Left frontal scalp and periorbital hematoma. No acute fracture. This document has been electronically signed by: Debra Mondragon MD on 11/03/2024 20:31:22
[2024-11-03 17:52] VITALS: BP 152/52; PULSE 59; O2SAT 99
[2024-11-03 17:56] VITALS: BMI 21.4
[2024-11-03 18:00] VITALS: BP 148/62; PULSE 60; RESP 14; TEMP 36.8; O2SAT 98
--- NOTE | 2024-11-03 18:23 | ED_ITS ---
HPI - General Adult General Chief complaint: Fall Stated complaint: fall, unk loc, +head strike, on thinners Time Seen by Provider: 11/03/24 18:23 Source: patient, family (patient's granddaughter) and EMS Mode of arrival: EMS Limitations: no limitations History of Present Illness ED Provider: Kim Castro PA-C HPI narrative: Patient is a 78 year old male with a past medical history of CAD (previous CABG), HTN, HLD, cerebellar atrophy for which he follows with a neurologist, and asthma who presents to [place] ED via EMS after an unwitnessed fall. He states that the last thing he recalls is walking through his kitchen. He does not recall how he fell. + Head strike. Unknown LOC. Not on blood thinners. Patients granddaughter who lives with patient is present who states she heard patient fall and found him lying on the kitchen floor. She subsequently called EMS. He is currently complaining of pain over the left orbit where there is obvious swelling. Also endorses some mild pain and bruising to the bilateral forearms. Denies neck or back pain. Denies dizziness, chest pain, shortness of breath, nausea, or vomiting. Relieving factors: none Exacerbating factors: none Associated symptoms: denies other symptoms Treatments prior to arrival: none Related Data Home Medications ?Medication ?Instructions ?Recorded ?Confirmed memantine 5 mg tablet 5 mg PO DAILY 09/06/24 09/06/24 Saccharomyces boulardii 250 mg 250 mg PO BID 10/30/24 capsule (Digest Probiotic (S.boulardii)) albuterol sulfate 90 mcg/actuation 2 inh inhalation Q4H PRN 10/30/24 breath activated powder inhaler amoxicillin 500 mg capsule 500 mg PO QID 10/30/24 aspirin 81 mg tablet,delayed 81 mg PO DAILY 10/30/24 release (Adult Low Dose Aspirin) cholecalciferol (vitamin D3) 50 50 mcg PO DAILY 10/30/24 mcg (2,000 unit) capsule cyanocobalamin (vitamin B-12) 1,000 mcg PO DAILY 10/30/24 1,000 mcg tablet mometasone 110 mcg/actuation(30 2 inh inhalation DAILY 10/30/24 doses) breath activated powder inhaler montelukast 10 mg tablet 10 mg PO BEDTIME 10/30/24 (Singulair) Previous Rx's ?Medication ?Instructions ?Recorded metoprolol succinate 50 mg 50 mg PO DAILY #90 tabs 09/04/24 tablet,extended release 24 hr acetaminophen 500 mg tablet 500 mg PO Q6H PRN fever or pain 09/14/24 (Tylenol Extra Strength) #14 tabs ibuprofen 800 mg tablet 800 mg PO Q8H PRN pain #14 tabs 09/14/24 lidocaine 5 % topical patch 1 patch topical DAILY PRN pain #30 09/14/24 (Lidoderm) ea amlodipine 5 mg tablet 5 mg PO DAILY #90 tabs 10/09/24 lovastatin 20 mg tablet 20 mg PO DAILY #90 tabs 10/09/24 Allergies Allergy/AdvReac Type Severity Reaction Status Date / Time lisinopril [LISINOPRIL] Allergy Unknown UNKNOWN Verified 11/03/24 17:58 Review of Systems 2 Constitutional: Constitutional: Reports no additional constitutional complaints, Denies chills, Denies fever(s) and Denies night sweats Eyes: Eyes: Reports no additional eye complaints, Denies blurry vision, Denies change in vision, Denies diplopia, Denies eye discharge and Denies loss of vision Comments: left orbit bruising / pain ENT: Denies dizziness and Denies neck pain Cardiovascular: Cardiovascular: Reports no additional cardiovascular complaints, Denies chest pain, Denies lightheadedness and Denies dyspnea Respiratory: Respiratory: Reports no additional respiratory complaints and Denies dyspnea Gastrointestinal: Gastrointestinal: Reports no additional gastrointestinal complaints, Denies abdominal pain, Denies melena, Denies hematochezia, Denies change in bowel habits and Denies change in stool character Genitourinary: Genitourinary: Reports no additional male genitourinary complaints, Denies hematuria, Denies oliguria, Denies difficulty urinating, Denies dysuria, Denies urinary frequency, Denies urinary hesitancy, Denies urinary incontinence and Denies urinary urgency Musculoskeletal: Musculoskeletal: Reports no additional musculoskeletal complaints, Reports as per HPI, Denies back pain, Denies neck pain, Denies numbness and Denies tingling Comments: bilateral forearm bruising Neurologic: Denies dizziness, Denies loss of vision, Denies numbness and Denies tingling Psychiatric: Psychiatric: Reports no additional psychiatric complaints Endocrine: Endocrine: Reports no additional endocrine complaints Hematologic/Lymphatic: Hematologic/Lymphatic: Reports no additional hematologic/lymphatic complaints Allergic/Immunologic: Allergic/Immunologic: Reports no additional allergic/immunologic complaints [facility] Past Medical History Attestation statement: The following information was validated with the patient. (all information validated with the patient's [facility]) Source: old records reviewed, obtained from family (patient's granddaughter provided additional history and confirmed the history provided by the patient.) and nursing notes reviewed Social History Social History Unable to assess alcohol history related to: Unknown Smoked in Last 30 Days: No Use of substances other than those prescribed or required for medical reasons: Unknown Advance Directives: No Advance Directives Information Provided: No Do you have a plan to hurt others: No Plan Physical Exam ED Vital Signs: Vital Signs - 24 hr 11/03/24 18:00 11/03/24 20:20 Temperature 98.2 F 98.8 F Pulse Rate 60 57 Respiratory Rate 14 18 Blood Pressure 148/62 H 143/52 H Pulse Oximetry 98 99 Oxygen Delivery Method Room Air Room Air BMI result Body Mass Index 21.4 Const General: cooperative, no acute distress, alert and awake Nutritional Appearance: well nourished Orientation/consciousness: patient oriented x3 Limitations: no limitations [facility] Head: Yes normal to inspection, No No palpable skull fracture present, Yes normocephalic, No Avery's sign, Yes hematoma, No raccoon eyes and No scalp tenderness Ears: hearing grossly normal bilaterally and external ears normal General nose exam: Normal external nose present, no nasal discharge noted and no epistaxis Face and sinus: Yes normal facial exam, No abrasion and No laceration Mouth: Normal oral and palatal mucosa present, no drooling and no muffled voice Eyes Periorbital: periorbital findings abnormal (Edema over the left orbit) Eyelids: Yes eyelids normal Conjunctivae: conjunctivae normal Pupils: Equal, round and reactive pupils present EOM: EOMs intact bilaterally and Nystagmus present (horizontal - chronic for the patient secondary to cerebellar atrophy) Neck Neck: Yes normal visual inspection, Yes full ROM and Yes no lymphadenopathy Chest Chest palpation & inspection: normal inspection of the chest Resp Effort & Inspection: normal respiratory effort and able to speak in complete sentences Auscultation: clear to auscultation bilaterally Cardio Rate: regular rate Rhythm: regular rhythm Heart sounds: S1 normal heart sound present, S2 normal heart sound present, no gallops, no murmurs and no rubs GI Inspection: Yes normal to inspection Palpation (GI): Soft to palpation, not firm, nontender, no guarding and not rigid Back/Spine/Pelvis Back: No back tenderness Cervical Spine: No Cervical spine tenderness and No step off deformity Thoracic/Lumbar Spine: thoracic and lumbar spine normal to inspection, No thoracic spinal tenderness and No lumbar spinal tenderness Pelvis: pain with anterior-posterior compression and pain with lateral compression Neuro General: patient oriented x3, moves all extremities and CN's II-XI intact bilaterally Cranial nerves: Yes Equal, round and reactive pupils present and Yes Nystagmus present (horizontal - chronic for the patient secondary to cerebellar atrophy) Cognition (Neuro): normal cognition Motor exam (neuro): 5/5 motor strength present throughout Extrem Other: minimal bruising present to the bilatearl forearms General: Yes full ROM and Yes capillary refill normal Psych Appearance: grossly normal Mental Status: mental status grossly normal Affect: normal affect Attitude: cooperative Thought process: Normal thought process present Thought content: Normal thought content present Insight: Good insight present (Psych) Medical Decision Making Medical Decision Making MDM Narrative: Patient is a 78 year old male with a past medical history of CAD (previous CABG), HTN, HLD, cerebellar atrophy for which he follows with a neurologist, and asthma who presents to [place] ED via EMS after an unwitnessed fall. Patient's physical exam was as noted in the physical exam portion of this note. Patient's blood work was unremarkable. Patient's EKG was unremarkable. Patient's bilateral forearm x-rays, CT head, and CT c-spine showed no acute process. I explained my physical exam findings as well as all test results to the patient and the patient's granddaughter. I answered all questions asked by the patient and the patient's granddaughter. Patient was able to ambulate while in the department without issue. I had an extensive conversation with the patient and his granddaughter about discharging the patient home. They stated they both felt comfortable with the patient going home and the patient's granddaughter stated she would keep close watch of the patient. I stressed the importance of the patient taking his medication as directed (either prescribed or as the over the counter packaging recommends). I stressed the importance of the patient following up with his primary care provider and his established neurologist. I stressed the importance of the patient returning to the emergency department immediately if his symptoms were to worsen or if he were to develop any dizziness, shortness of breath, difficulty breathing, chest pain, blurry vision, loss of vision, nausea, vomiting, abdominal pain, fever, chills, back pain, or any other complaints. Patient and the patient's granddaughter verbalized agreement and understanding with this treatment plan and discharge. Differential Diagnosis Differential Diagnoses: The differential diagnosis associated with the presentation includes Fall Poor balance at baseline Admission/Observation Consideration of admission/observation: Escalation of care including admission/observation considered Patient would have been admitted to the hospital had his work up had any findings where hospital admission was appropriate and his clinical presentation warranted hospital admission. Lab Data [facility] Lab Attestation statement: I reviewed the patient's lab results. My interpretation of these results are in the [facility] Rationale portion of this note. 11/03/24 18:44 11/03/24 18:44 Labs: Lab Results 11/03/24 11/03/24 Range/Units 18:44 18:49 WBC 6.4 (4.8-10.8) X10*3/uL RBC 4.02 L (4.60-5.80) X10*6/uL Hgb 12.4 L (14.0-18.0) g/dl Hct 36.5 L (42.0-52.0) % MCV 90.8 (80.0-98.0) fL MCH 30.8 (27.0-33.0) pg MCHC 34.0 (31.0-36.0) g/dl RDW 13.5 (11.0-16.0) % Plt Count 218 (160-400) X10*3/uL MPV 10.5 (9.4-12.4) fL Immature Gran % (Auto) 0.3 (0.0-0.4) % Neut % (Auto) 76.8 H (45-73) % Lymph % (Auto) 12.3 L (20-40) % Peach % (Auto) 7.2 (2-11) % Eos % (Auto) 2.6 (0-4) % Baso % (Auto) 0.8 (0-2) % Lymph # (Auto) 0.8 L (1.2-4.9) X10*3/uL Peach # (Auto) 0.5 (0.1-1.2) X10*3/uL Eos # (Auto) 0.2 (0.0-0.4) X10*3/uL Baso # (Auto) 0.1 (0.0-0.2) X10*3/uL Abs Immat Gran (auto) 0.02 (0.00-0.03) X10*3/uL Absolute Neuts (auto) 4.9 (2.0-8.3) x10*3/uL Absolute Nucleated RBC 0.000 (0.0-0.012) X10*3/uL Nucleated RBC % (auto) 0.0 (0.0-0.2) /100WBC PT 10.9 (10.9-12.4) SEC INR 0.9 (0.9-1.1) Sodium 143 (135-145) mmol/L Potassium 3.9 (3.3-5.1) mmol/L Chloride 108 (96-108) mmol/L Carbon Dioxide 29 (22-29) mmol/L Anion Gap 10 L (12-20) BUN 21 H (9-16) mg/dL Creatinine 1.31 (0.5-1.4) mg/dL Estim Creat Clear Calc 42.0 Estimated GFR 53 Random Glucose 178 H (60-115) mg/dL Calcium 9.0 (8.4-10.2) mg/dL Magnesium 1.8 (1.6-2.6) mg/dL Total Bilirubin 0.6 (0.0-1.0) mg/dL AST 13 (5-37) U/L ALT 8 (0-40) U/L Alkaline Phosphatase 92 (39-117) U/L Troponin I High Sens 15.6 (<3.5-35.0) ng/L Total Protein 6.8 (6.5-8.0) g/dL Albumin 3.8 (3.5-5.0) g/dL Influenza Type A (PCR) NEGATIVE (Negative) Influenza Type B (PCR) NEGATIVE (Negative) RSV RNA Qual (PCR) NEGATIVE (Negative) SARS-CoV-2 RNA (RT-PCR) NEGATIVE (Negative) Independent Interpretation I performed an independent interpretation of an: EKG, Plain X-Ray and CT Scan Interpretation: My interpretation is in agreement with the radiologist's impression of these imaging studies. L CLINICAL HISTORY: fall, injury 2 view right forearm Comparison: None Findings: Lucency in the region of the trapezium and trapezoid at the base of the 2nd metatarsal, possibly artifact from overlapping bones however nondisplaced fracture can not be excluded. Correlate for point tenderness. Radius and ulna are intact. No dislocation. IMPRESSION: Lucency in the region of the trapezium and trapezoid at the base of the 2nd metatarsal, possibly artifact from overlapping bones however nondisplaced fracture can not be excluded. Correlate for point tenderness. This document has been electronically signed by: Debra Mondragon MD on 11/03/2024 20:09:37 Dictated By: Debra Mondragon MD Signed By: Electronically signed by Debra Mondragon MD 11/03/242010 CLINICAL HISTORY: fall, injury 2 view left forearm Comparison: None Findings: No fractures or dislocations. No joint effusion. Surgical clips in the dorsal forearm. IMPRESSION: No acute fracture. This document has been electronically signed by: Debra Mondragon MD on 11/03/2024 20:11:26 Dictated By: Debra Mondragon MD Signed By: Electronically signed by Debra Mondragon MD 11/03/242011 Report Number: [id number]: Total DLP = 876.00 mGy-cm CLINICAL HISTORY: fall, head strike, pain CT cervical spine without contrast Comparison: None Findings: Normal vertebral body alignment. Multilevel degenerative changes. No acute fractures or dislocations. Visualized intracranial contents are unremarkable. No cervical fluid collections or masses. Lung apices are clear. IMPRESSION: 1. No acute cervical spine injury. This document has been electronically signed by: Debra Mondragon MD on 11/03/2024 20:28:51 Dictated By: Debra Mondragon MD Signed By: Electronically signed by Debra Mondragon MD 11/03/242028 Report Number: [id number]: Total DLP = 876.00 mGy-cm CLINICAL HISTORY: fall, head strike, pain CT head without contrast Comparison: MR/SR - MR HEAD/BRAIN WO CON - 12/30/22 14:[address]/SR - BRAIN WO IV CONTRAST [id number] - 09/20/17 11:16 EST Findings: No intra-axial mass, midline shift, hydrocephalus, or acute hemorrhage. Diffuse volume loss. Periventricular and subcortical white matter hypoattenuation likely chronic small-vessel ischemic changes. Intracranial atherosclerosis. Mucosal thickening in the ethmoid air cells. Left frontal scalp and periorbital hematoma. No skull fracture. IMPRESSION: No acute intracranial findings. Left frontal scalp and periorbital hematoma. No acute fracture. This document has been electronically signed by: Debra Mondragon MD on 11/03/2024 20:31:22 Dictated By: Debra Mondragon MD Signed By: Electronically signed by Debra Mondragon MD 11/03/242032 I independently interpreted this EKG and am in agreement with the below findings: Vent. Rate: 59 BPM Atrial Rate: 59 BPM P-R Int: 240 ms QRS Dur: 120 ms QT Int: 418 ms P-R-T Axes: 61 -28 81 degrees QTcB Int: 413 ms Sinus bradycardia with sinus arrhythmia with 1st degree A-V block Left ventricular hypertrophy with QRS widening and repolarization abnormality When compared with ECG of 14-Sep-2024 18:14, Premature supraventricular complexes are no longer Present DD/ [id number] Radiology Impression Discussion of test interpretation with radiology: I have reviewed the radiologist's reading. Independent Historian Clinical information obtained from an independent historian. History obtained from or confirmed by: EMS (EMS provided additional history and confirmed the history provided by the patient.) and Other (patient's granddaughter provided additional history and confirmed the history provided by the patient.) Discharge Plan Discharge Clinical Impression: Fall, Bruise of face Patient Disposition: Home, Self-Care Instructions: Fall Prevention for Older Adults (ED), Facial Contusion (ED) Additional Instructions: Your imaging was unremarkable. Your lab work was reassuring. Follow up with your primary care provider. Return to the emergency department immediately if your symptoms worsen or if you develop any numbness, tingling, dizziness, shortness of breath, difficulty breathing, chest pain, blurry vision, loss of vision, nausea, vomiting, abdominal pain, fever, chills, back pain, or any other complaints. Please see the information below about our Patient Portal. If you are not yet enrolled in the [facility] Patient Portal, you will receive an enrollment email invitation following your visit to any [facility] care setting. You may also self-enroll in the Patient Portal by visiting our website: [email or web address] The following information is required to access the Patient Portal: - Your [facility] Medical Record Number - Your personal home email address (must match what is in your electronic medical record, Registration staff can assist with this) - Name - Date of Capabilities of the Patient Portal: - Message some providers - View upcoming appointments - Access your health summary, medical history, and visit history - View current conditions and allergies - View procedure and lab results - View your medications, including guidelines, side effects, and precautions - Complete pre-appointment questionnaires requested by your provider - Ready summary reports of your office visits and procedures To access the Patient Portal Mobile [employer], follow these directions: - Search [employer] in the [employer] Store or [employer] ([employer]) Store - Download the [employer] - Search for [facility] - Enter your login/password Prescriptions: No Action metoprolol succinate 50 mg tablet extended release 24 hr 50 mg PO DAILY Qty: 90 1RF amlodipine 5 mg tablet 5 mg PO DAILY Qty: 90 1RF lovastatin 20 mg tablet 20 mg PO DAILY Qty: 90 1RF aspirin [Adult Low Dose Aspirin] 81 mg tablet,delayed release (DR/EC) 81 mg PO DAILY montelukast [Singulair] 10 mg tablet 10 mg PO BEDTIME mometasone 110 mcg/ actuation (30) aerosol powdr breath activated 2 inh inhalation DAILY Rx Instructions: administer 1 hour before bedtime albuterol sulfate 90 mcg/actuation aerosol powdr breath activated 2 inh inhalation Q4H PRN cholecalciferol (vitamin D3) 50 mcg (2,000 unit) capsule 50 mcg PO DAILY cyanocobalamin (vitamin B-12) 1,000 mcg tablet 1,000 mcg PO DAILY Saccharomyces boulardii [Digest Probiotic (S.boulardii)] 250 mg capsule 250 mg PO BID amoxicillin 500 mg capsule 500 mg PO QID ibuprofen 800 mg tablet 800 mg PO Q8H PRN (Reason: pain) Qty: 14 0RF acetaminophen [Tylenol Extra Strength] 500 mg tablet 500 mg PO Q6H PRN (Reason: fever or pain) Qty: 14 0RF lidocaine [Lidoderm] 5 % adhesive patch,medicated 1 patch topical DAILY MDD remove after 12 hours PRN (Reason: pain) Qty: 30 0RF Rx Instructions: leave on most painful area for up to 12 hrs memantine 5 mg tablet 5 mg PO DAILY Referrals: [facility] Family Medicine [Provider Group] (Call to establish and follow up with a primary care provider. IF you already have a primary care provider, please follow up with them.) [facility] [Provider Group] (Call to establish and follow up with a primary care provider. IF you already have a primary care provider, please follow up with them.) [facility] Primary [facility] [Provider Group] (Call to establish and follow up with a primary care provider. IF you already have a primary care provider, please follow up with them.) [facility] Primary [facility] [Provider Group] (Call to establish and follow up with a primary care provider. IF you already have a primary care provider, please follow up with them.) Interventions: ED Discharge Assessment Last Done: 11/03/24 21:16 Print Language: Greenlandic
--- NOTE | 2024-11-03 18:24 | ECG_ITS ---
Test Reason : weakness Blood Pressure : */* mmHG Vent. Rate : 59 BPM Atrial Rate : 59 BPM P-R Int : 240 ms QRS Dur : 120 ms QT Int : 418 ms P-R-T Axes : 61 -28 81 degrees QTcB Int : 413 ms Sinus bradycardia with sinus arrhythmia with 1st degree A-V block Left ventricular hypertrophy with QRS widening and repolarization abnormality ( R in aVL , Walker product ) Abnormal ECG When compared with ECG of 14-Sep-2024 18:14, Premature supraventricular complexes are no longer Present Referred By: Kim Castro Electronically Signed By: DANIELLE SEARS
[2024-11-03 18:48] LABS: MANUAL DIFF FLAG NO
[2024-11-03 18:50] LABS: Basophils Absolute Auto 0.1 X10*3/uL (0.0-0.2); Basophils Percent Auto 0.8 % (0-2); Eosinophils Absolute Auto 0.2 X10*3/uL (0.0-0.4); Eosinophils Percent Auto 2.6 % (0-4); Hematocrit 36.5 % (42.0-52.0); Hemoglobin 12.4 g/dl (14.0-18.0); Imm Gran Abs Auto 0.02 X10*3/uL (0.00-0.03); Imm Gran Pct Auto 0.3 % (0.0-0.4); Lymphocytes Absolute Auto 0.8 X10*3/uL (1.2-4.9); Lymphocytes Percent Auto 12.3 % (20-40); Mean Corpuscular Hemoglobin 30.8 pg (27.0-33.0); Mean Corpuscular Volume 90.8 fL (80.0-98.0); Mean Platelet Volume 10.5 fL (9.4-12.4); Monocytes Absolute Auto 0.5 X10*3/uL (0.1-1.2); Monocytes Percent Auto 7.2 % (2-11); Neutrophils Absolute Auto 4.9 x10*3/uL (2.0-8.3); Neutrophils Percent Auto 76.8 % (45-73); Platelet Count 218 X10*3/uL (160-400); Red Blood Count 4.02 X10*6/uL (4.60-5.80); Red Cell Distribution Width 13.5 % (11.0-16.0); White Blood Count 6.4 X10*3/uL (4.8-10.8)
[2024-11-03 19:00] LABS: INTERNATIONAL NORM RATIO 0.9 (0.9-1.1); Prothrombin Time 10.9 SEC (10.9-12.4)
[2024-11-03 19:11] LABS: Alanine Aminotransferase 8 U/L (0-40); Albumin Level 3.8 g/dL (3.5-5.0); Alkaline Phosphatase 92 U/L (39-117); Anion Gap 10 (12-20); Aspartate Amino Transferase 13 U/L (5-37); Bilirubin Total 0.6 mg/dL (0.0-1.0); Blood Urea Nitrogen 21 mg/dL (9-16); Carbon Dioxide 29 mmol/L (22-29); Chloride 108 mmol/L (96-108); Estimated Glomerular Filt Rate 53; Glucose Random 178 mg/dL (60-115); Magnesium 1.8 mg/dL (1.6-2.6); Potassium 3.9 mmol/L (3.3-5.1); Sodium 143 mmol/L (135-145); Total Protein 6.8 g/dL (6.5-8.0)
[2024-11-03 19:18] LABS: Troponin-I High Sensitivity 15.6 ng/L (<3.5-35.0)
[2024-11-03 19:28] LABS: Influenza A PCR NEGATIVE (Negative); Influenza B PCR NEGATIVE (Negative); Resp Syncy Virus RNA Qual PCR NEGATIVE (Negative); SARS COV2 PCR INHOUSE NEGATIVE (Negative)
[2024-11-03 20:20] VITALS: BP 143/52; PULSE 57; RESP 18; TEMP 37.1; O2SAT 99
[2024-11-03 21:16] VITALS: BP 143/52; PULSE 57; RESP 18; TEMP 37.1; O2SAT 99
== END 2024-11-03 21:22 | disposition home or self-care (01) ==
PROVIDERS: Physician Assistant Medical; Emergency Provider Emergency Medicine
DX: S00.83XA Contusion of other part of head, initial encounter (principal); I25.10 Atherosclerotic heart disease of native coronary artery without angina pectoris; R00.1 Bradycardia, unspecified; I49.8 Other specified cardiac arrhythmias; R94.31 Abnormal electrocardiogram [ECG] [EKG]; M79.602 Pain in left arm; M79.601 Pain in right arm; R51.9 Headache, unspecified; M54.2 Cervicalgia; I10 Essential (primary) hypertension; W19.XXXA Unspecified fall, initial encounter; Y93.01 Activity, walking, marching and hiking; Y92.000 Kitchen of unspecified non-institutional (private) residence as the place of occurrence of the external cause; Y99.8 Other external cause status; Z03.818 Encounter for observation for suspected exposure to other biological agents ruled out; Z79.01 Long term (current) use of anticoagulants; Z79.899 Other long term (current) drug therapy
CPT/HCPCS: 0241U; 70450; 72125; 73090; 80053; 83735; 84484; 85025; 85610; 93005; 99284; 99285

== ENCOUNTER → 2024-11-03 18:24 | Outpatient (BNV) | payer MEDICARE, BC, SELFPAY | PROVIDERS: Emergency Provider Emergency Medicine; Visit Provider Internal Medicine | DX: I44.0 Atrioventricular block, first degree (principal); I51.7 Cardiomegaly; I49.9 Cardiac arrhythmia, unspecified; R00.1 Bradycardia, unspecified | CPT/HCPCS: 93010 ==

== ENCOUNTER → 2024-11-03 18:24 | Outpatient (BNV) | payer MEDICARE, BC, SELFPAY | PROVIDERS: Emergency Provider Emergency Medicine; Visit Provider Radiology Diagnostic Radiology | DX: M54.2 Cervicalgia (principal); S00.03XA Contusion of scalp, initial encounter; S00.12XA Contusion of left eyelid and periocular area, initial encounter; R51.9 Headache, unspecified; S59.911A Unspecified injury of right forearm, initial encounter; S59.912A Unspecified injury of left forearm, initial encounter | CPT/HCPCS: 70450; 72125; 73090 ==

== ENCOUNTER 2024-11-07 10:37 | Outpatient (AMB) | payer MEDICARE, BC, SELFPAY ==
--- NOTE | 2024-11-07 10:39 | MHC.PC.OV ---
Vital Signs 11/07/24 10:47 Height 5 ft 8 in Weight 146 lb BMI 22.2 BP 160/54 H Blood Pressure Location Rt brachial Pulse 59 Pulse Source Pulse Oximeter Temp 97.1 F Pulse Oximetry (%) 98 Intake Visit Reasons: Medical Clearence Intake Note: had a fall last wednesday but no other issues Allergies lisinopril [LISINOPRIL] Allergy (Unknown, Verified 11/13/24 08:11) UNKNOWN Medication List - Last Reconciled 11/07/24 by Sandie Carlos PA-C acetaminophen (Tylenol Extra Strength) 500 mg PO Q6H PRN albuterol sulfate 90 mcg/actuation 2 inhalations inhalation Q4H PRN amlodipine 5 mg PO DAILY amoxicillin 500 mg PO QID aspirin (Adult Low Dose Aspirin) 81 mg PO DAILY cholecalciferol (vitamin D3) 50 mcg PO DAILY cranberry 500 mg PO BID cyanocobalamin (vitamin B-12) 1,000 mcg PO DAILY ibuprofen 800 mg PO Q8H PRN lovastatin 20 mg PO DAILY memantine 5 mg PO DAILY metoprolol succinate ER 50 mg PO DAILY mometasone 2 inhalations inhalation DAILY montelukast (Singulair) 10 mg PO BEDTIME Saccharomyces boulardii (Digest Probiotic (S.boulardii)) 250 mg PO BID PFSH Medical History (Updated 11/08/24 @ 10:12 by Brii Bravo RN) Mixed hyperlipidemia CAD (coronary artery disease) CVA (cerebral vascular accident) Atherosclerosis of [place] coronary artery of [place] heart without angina pectoris LVH (left ventricular hypertrophy) First degree AV block Traumatic subconjunctival hemorrhage of left eye Cataract Preoperative clearance Renal cell cancer Urinary retention DVT (deep venous thrombosis) Carcinoid tumor Fall Surgical History (Updated 11/08/24 @ 10:12 by Brii Bravo RN) S/P CABG x 5 History of coronary artery stent placement History of left nephrectomy Social History Unable to assess alcohol history related to: Unknown Patient Tobacco Use Status: Former Tobacco user Advance Directives: No Advance Directives Information Provided: Yes Advance Directives on File: No Nutrition Risks: No Nutritional Risk Physical exam (Primary Care) Vital Signs: Last Vital Signs Temp 97.1 F 11/07/24 10:47 Pulse 59 11/07/24 10:47 BP 160/54 H 11/07/24 10:47 Pulse Ox 98 11/07/24 10:47 BMI result Body Mass Index 22.2 Coding Level of Care Code Est Pt Level 4 (39110) Complex EM visit Add On G2211 Diagnoses Preoperative clearance Z01.818 Cataract H26.9 Fall W19.XXXA Traumatic subconjunctival hemorrhage of left eye H11.32 First degree AV block I44.0 LVH (left ventricular hypertrophy) I51.7 Hypertension I10 Assessment & Plan Assessment & Plan (1) Preoperative clearance: Code(s): Z01.818 - Encounter for other preprocedural examination Category: Medical Plan: Patient presenting for preop clearance for bilateral cataract surgery. He is scheduled to have his 1st surgery with Dr. Valle at [facility] on November 13 for opposite eye on November 27. Patient is currently on aspirin he was instructed to discontinue aspirin 72 hours prior to the surgery and 48 hours after surgery then he can restart after the 48 hours. Patient with granddaughter at bedside understand agree this plan. (2) Cataract: Code(s): H26.9 - Unspecified cataract Category: Medical Plan: Patient presenting for preop clearance for bilateral cataract surgery. He is scheduled to have his 1st surgery with Dr. Valle at [facility] on November 13 for opposite eye on November 27. Patient is currently on aspirin he was instructed to discontinue aspirin 72 hours prior to the surgery and 48 hours after surgery then he can restart after the 48 hours. Patient with granddaughter at bedside understand agree this plan. (3) Fall: Code(s): W19.XXXA - Unspecified fall, initial encounter Category: Medical Plan: Patient was seen in the emergency department on 11/03/2024 and had normal labs, normal CT scan. EKG was sinus bradycardia with sinus arrhythmia with first-degree AV block with LVH with QRS widening and repolarization abnormality. Otherwise no acute ischemic change are noted. Condition is stable continue to monitor. (4) Traumatic subconjunctival hemorrhage of left eye: Code(s): H11.32 - Conjunctival hemorrhage, left eye Category: Medical Plan: Patient with traumatic subconjunctival hematoma of left eye. It is improving. Although I discussed with the patient that he should speak to the remote sensing technician to ensure that the procedure for cataract surgery can still be performed with the subconjunctival hematoma. Patient with granddaughter at bedside understand and agree with this plan. Condition is stable and improving will continue to monitor. (5) First degree AV block: Code(s): I44.0 - Atrioventricular block, first degree Category: Medical Plan: EKG on 11/03/2024 revealed sinus bradycardia with sinus arrhythmia with first-degree AV block with LVH with QRS widening and repolarization abnormality with ventricular rate of 59. No acute ischemic change are noted. Patient being followed by Cardiology. Condition is stable will continue to monitor. (6) LVH (left ventricular hypertrophy): Code(s): I51.7 - Cardiomegaly Category: Medical Plan: EKG on 11/03/2024 revealed sinus bradycardia with sinus arrhythmia with first-degree AV block with LVH with QRS widening and repolarization abnormality with ventricular rate of 59. No acute ischemic change are noted. Patient being followed by Cardiology. Condition is stable will continue to monitor. (7) Hypertension: Code(s): I10 - Essential (primary) hypertension Category: Medical Plan: BP Goal <130/80. Patient is currently on 5 mg of amlodipine and 50 mg of metoprolol taking as prescribed. Condition is chronic and stable continue to monitor. Plan Plan Patient was informed and verbally consented to the use of an ambient scribe for clinic note documentation during this visit. 1. Pre-Op clearance for bilateral cataract surgery - At this time patient is being medically cleared for cataract surgery with Dr. Valle scheduled November 13 and November 27, 2024. Patient is instructed to discontinue his aspirin 72 hours prior to procedure and 48 hours after procedure then he can restart after the 48 hours. Patient with granddaughter understand agree this plan. 2. Anemia Stable; no immediate intervention needed unless symptoms develop further. 3. Conjunctival hemorrhage, left eye Monitor for resolution and coordinate with remote sensing technician concerning cataract surgery readiness. 4. Fall With Resultant Hematomas Managed with ice packs and monitoring of resolution for readiness for cataract surgery. 5. First-Degree Av Block /LVH/Sinus Bradycardia Stable; continue cardiology monitoring [id number] heart monitoring. Discussion Notes During this visit, I discussed the patient?s recent fall and subsequent injuries, emphasizing that he had a left frontal scalp and periorbital hematoma, as well as a subconjunctival hematoma. I evaluated his readiness for upcoming cataract surgery, planned for the , suggesting coordination with his remote sensing technician regarding the subconjunctival hematoma. The fall's impact on his surgical plans was a paramount consideration. The patient's EKG cardiovascular findings, including a first-degree AV block and sinus bradycardia, were reviewed. His 72-hour heart monitor provided insight into these longstanding cardiac issues. He is followed by a dean of students and an data science and iot manager to monitor and maintain these conditions meticulously. Furthermore, I addressed his anemia and recent hyperglycemia, noting the need for regular monitoring without immediate interventions unless symptomatology changes. A follow-up with cardiology was ensured to interpret the heart monitor's comprehensive results, determining future management steps if required. Patient Instructions: Patient Instructions - you are being medically cleared at this time for bilateral cataract surgery scheduled on November 13 [address] Valle. - Use an ice pack on the affected area to reduce swelling. - Follow up with the remote sensing technician to confirm readiness for cataract surgery. - Monitor swelling and report any changes to healthcare provider. - Keep cardiac follow-up appointments as scheduled to address heart condition findings. - Maintain hydration and a regular diet, avoiding excessive sugar if possible. - Watch for any new symptoms or changes in current ones. Contact healthcare provider if concerned. Scribe Plan - Not visible on output: History of Present Illness The patient is a 78-year-old male presenting for medical clearance for cataract surgery and follow-up after a recent fall. On Wednesday, the patient experienced a fall resulting in a left frontal scalp hematoma and periorbital hematoma. Despite significant bruising and swelling, CT scans, and arm X-rays did not indicate fractures, with blood work appearing normal. The patient developed a subconjunctival hematoma in one eye, impacting his vision and potentially influencing his upcoming cataract surgery scheduled for the of this month. He had an EKG while in the ED after the fall revealed a first-degree AV block and sinus bradycardia with sinus arrhythmia, findings consistent with his baseline. Notably, left ventricular hypertrophy with QRS widening and repolarization abnormality were observed which are also chronic. In terms of hematologic health, he presents with chronic anemia and experienced elevated glucose levels, attributed to a recent meal prior to his fall. Cardiovascular issues have been a point of assessment, involving recent heart monitoring due to sporadic extra heartbeats and an existing heart murmur. He follows up with cardiology and has engaged with an data science and iot manager for a comprehensive evaluation. Social History - The patient is retired and lives with family, specifically his granddaughter, Hakeem. - The family is proactive in ensuring his healthcare needs are met, including immediate medical attention following the fall. - There are no explicit discussions of substance use, employment prior to custodial, or specific details regarding diet or exercise in the conversation. Review of Systems - Eyes: Reports Left subconjunctival hematoma, resultant from the fall. - Cardiovascular: Reports history of heart murmur, first-degree AV block, and sinus bradycardia. Physical Exam Appearance: Alert. Oriented X3. No acute distress. Head: Left frontal scalp and periorbital hematoma noted. No signs of infection. No other signs of trauma. Eyes: Pupils are equal, round, and reactive to light. Extraocular movements intact. Right Conjunctiva and sclera normal. Eyelids normal. Left Subconjunctival hematoma noted. Patient noted to have left periorbital bruising. Ears: External auditory canal normal. Tympanic membranes normal. No septal hematomas noted. No hemotympanum noted. Throat: Pharynx normal. Uvula midline. Moist mucous membranes. Normal voice. Neck: Normal inspection. Neck supple. Full range of motion. No adenopathy. Thyroid Normal. No meningeal signs. No neck mass noted. Cardiovascular: Normal heart rate and rhythm. Heart sound normal. No murmurs noted. Pulses normal throughout. Sinus bradycardia with sinus arrhythmia with first degree AV block, LVH with QRS wiring and repolarization abnormality noted. Respiratory: No respiratory distress. Painless inspiration. Breath sounds normal. No wheezes/rales/rhonchi noted. Chest nontender. No accessory muscle usage noted or decreased air movement noted. Abdomen: Soft and nontender. Bowel sounds normal in all 4 quadrants. No distention noted. No organomegaly noted. No visible injury noted. Back: No costovertebral angle tenderness. Full range of motion noted. Skin: Skin warm and dry. Normal skin color. Normal skin turgor. No rashes/lesions/lacerations noted. Bruising noted on forearms. Extremities: Extremities exhibit normal range of motion nontender. There is bruising noted to forearm bilaterally. No signs of infection. No obvious deformities or joint swelling is noted. No lower extremity edema or calf tenderness is noted. Neuro: Oriented X 3. At baseline for motor utilizing stand up walker. Results - Labs: Blood tests indicated slight anemia and elevated glucose levels, likely postprandial. - Tests: CT scan of the head post-fall was negative for acute injury. - Diagnostics: EKG reveals first-degree AV block, sinus bradycardia, and sinus arrhythmia.
[2024-11-07 10:47] VITALS: BP 160/54; PULSE 59; TEMP 36.2; O2SAT 98; BMI 22.2
== END 2024-11-07 11:09 | disposition home or self-care (01) ==
LOC: HO.HMCSH 10:37
PROVIDERS: PCP Internal Medicine; Visit Provider Physician Assistant Medical
DX: Z01.818 Encounter for other preprocedural examination (principal); H26.9 Unspecified cataract; W19.XXXA Unspecified fall, initial encounter; H11.32 Conjunctival hemorrhage, left eye; I44.0 Atrioventricular block, first degree; I51.7 Cardiomegaly; I10 Essential (primary) hypertension

== ENCOUNTER → 2024-11-07 10:37 | Outpatient (BNVA) | payer MEDICARE, BC, SELFPAY | PROVIDERS: PCP Internal Medicine; Visit Provider Physician Assistant Medical | DX: Z01.818 Encounter for other preprocedural examination (principal); H26.9 Unspecified cataract; H11.32 Conjunctival hemorrhage, left eye; I44.0 Atrioventricular block, first degree; I51.7 Cardiomegaly; I10 Essential (primary) hypertension | CPT/HCPCS: 99212 ==

== ENCOUNTER 2024-11-13 07:47 | Day surgery (SDC) | payer MEDICARE, BC, SELFPAY ==
[2024-11-08 10:19] VITALS: BMI 22.2
[2024-11-13 08:12] VITALS: BP 157/69; PULSE 58; RESP 16; TEMP 36.8; O2SAT 100; BMI 21.3
[2024-11-13] MEDS: Tetracaine HCl/PF 0.5% Oph Sol 4 ML DROPS 1 DROP EYE-LEFT (08:26)
--- NOTE | 2024-11-13 08:26 | P.CONAN_ITS ---
Documented by User: Terrie Baptiste NP 11/09/24 13:25 HPI - Anesthesia Eval Consult details Narrative: 78yo M for Left Cataract Extraction IOL Insertion No previous cataract on record CAD s/p CABG x 5 PMFSH Active Problems Active Problems: All Active Problems Neuropathy (Acute) Cerebellar atrophy (Acute) Ataxia (Acute) Vitamin D deficiency (Acute) Asthma (Acute) Hyperlipidemia (Acute) Hypertension (Acute) CAD (coronary atherosclerotic disease) (Acute) Follow-up exam, 3-6 months since previous exam (Acute) LVH (left ventricular hypertrophy) (Acute) First degree AV block (Acute) Traumatic subconjunctival hemorrhage of left eye (Acute) Cataract (Acute) Preoperative clearance (Acute) Urinary retention (Acute) DVT (deep venous thrombosis) (Acute) Carcinoid tumor (Acute) Past Medical History Medical History (Updated 11/08/24 @ 10:12 by Brii Bravo RN) Mixed hyperlipidemia CAD (coronary artery disease) CVA (cerebral vascular accident) Atherosclerosis of [place] coronary artery of [place] heart without angina pectoris LVH (left ventricular hypertrophy) First degree AV block Traumatic subconjunctival hemorrhage of left eye Cataract Preoperative clearance Renal cell cancer Urinary retention DVT (deep venous thrombosis) Carcinoid tumor Fall Surgical History Surgical History (Updated 11/08/24 @ 10:12 by Brii Bravo RN) S/P CABG x 5 History of coronary artery stent placement History of left nephrectomy Social History Social History Unable to assess alcohol history related to: Unknown Patient Tobacco Use Status: Former Tobacco user Advance Directives: No Advance Directives Information Provided: Yes Advance Directives on File: No Nutrition Risks: No Nutritional Risk Meds Allergies Allergy/AdvReac Type Severity Reaction Status Date / Time lisinopril [LISINOPRIL] Allergy Unknown UNKNOWN Verified 11/13/24 08:11 Home Medications ?Medication ?Instructions ?Recorded ?Confirmed ?Last Taken ?Type memantine 5 mg tablet 5 mg PO DAILY 09/06/24 11/13/24 Unknown History Saccharomyces boulardii 250 mg 250 mg PO BID 10/30/24 11/13/24 Unknown History capsule (Digest Probiotic (S.boulardii)) albuterol sulfate 90 mcg/actuation 2 inh inhalation Q4H PRN Shortness 10/30/24 11/13/24 Unknown History breath activated powder inhaler Of Breath Or Wheezing amoxicillin 500 mg capsule 500 mg PO QID 10/30/24 11/07/24 Unknown History aspirin 81 mg tablet,delayed 81 mg PO DAILY 10/30/24 11/13/24 Unknown History release (Adult Low Dose Aspirin) cholecalciferol (vitamin D3) 50 50 mcg PO DAILY 10/30/24 11/13/24 Unknown History mcg (2,000 unit) capsule cyanocobalamin (vitamin B-12) 1,000 mcg PO DAILY 10/30/24 11/13/24 Unknown History 1,000 mcg tablet mometasone 110 mcg/actuation(30 2 inh inhalation DAILY 10/30/24 11/13/24 11/13/24 History doses) breath activated powder inhaler montelukast 10 mg tablet 10 mg PO BEDTIME 10/30/24 11/13/24 Unknown History (Singulair) cranberry 500 mg capsule 500 mg PO BID 11/07/24 11/13/24 Unknown History Exam Height,Weight and Vital Signs: Height 5 ft 8 in Weight 66.224 kg Narrative Narrative: EKG 10/2024 Vent. Rate : 59 BPM Atrial Rate : 59 BPM P-R Int : 240 ms QRS Dur : 120 ms QT Int : 418 ms P-R-T Axes : 61 -28 81 degrees QTcB Int : 413 ms Sinus bradycardia with sinus arrhythmia with 1st degree A-V block Left ventricular hypertrophy with QRS widening and repolarization abnormality ( R in aVL , Walker product ) Abnormal ECG When compared with ECG of 14-Sep-2024 18:14, Premature supraventricular complexes are no longer Present Assessment and Plan Assessment Anesthesia Assessment: Chart Reviewed Documented by User: Bijal Garay DO 11/13/24 08:27 [facility] Past Medical History Medical History (Updated 11/08/24 @ 10:12 by Brii Bravo RN) Mixed hyperlipidemia CAD (coronary artery disease) CVA (cerebral vascular accident) Atherosclerosis of [place] coronary artery of [place] heart without angina pectoris LVH (left ventricular hypertrophy) First degree AV block Traumatic subconjunctival hemorrhage of left eye Cataract Preoperative clearance Renal cell cancer Urinary retention DVT (deep venous thrombosis) Carcinoid tumor Fall Family History Family history of problems with anesthesia: No Surgical History Surgical History (Updated 11/08/24 @ 10:12 by Brii Bravo RN) S/P CABG x 5 History of coronary artery stent placement History of left nephrectomy History of Problems with Anesthesia: No Social History Social History Unable to assess alcohol history related to: Unknown Patient Tobacco Use Status: Former Tobacco user Advance Directives: No Advance Directives Information Provided: Yes Advance Directives on File: No Nutrition Risks: No Nutritional Risk Meds Allergies Allergy/AdvReac Type Severity Reaction Status Date / Time lisinopril [LISINOPRIL] Allergy Unknown UNKNOWN Verified 11/13/24 08:11 Home Medications ?Medication ?Instructions ?Recorded ?Confirmed ?Last Taken ?Type memantine 5 mg tablet 5 mg PO DAILY 09/06/24 11/13/24 Unknown History Saccharomyces boulardii 250 mg 250 mg PO BID 10/30/24 11/13/24 Unknown History capsule (Digest Probiotic (S.boulardii)) albuterol sulfate 90 mcg/actuation 2 inh inhalation Q4H PRN Shortness 10/30/24 11/13/24 Unknown History breath activated powder inhaler Of Breath Or Wheezing amoxicillin 500 mg capsule 500 mg PO QID 10/30/24 11/07/24 Unknown History aspirin 81 mg tablet,delayed 81 mg PO DAILY 10/30/24 11/13/24 Unknown History release (Adult Low Dose Aspirin) cholecalciferol (vitamin D3) 50 50 mcg PO DAILY 10/30/24 11/13/24 Unknown History mcg (2,000 unit) capsule cyanocobalamin (vitamin B-12) 1,000 mcg PO DAILY 10/30/24 11/13/24 Unknown His tory 1,000 mcg tablet mometasone 110 mcg/actuation(30 2 inh inhalation DAILY 10/30/24 11/13/24 11/13/24 History doses) breath activated powder inhaler montelukast 10 mg tablet 10 mg PO BEDTIME 10/30/24 11/13/24 Unknown History (Singulair) cranberry 500 mg capsule 500 mg PO BID 11/07/24 11/13/24 Unknown History Exam Exam Date and Time: 11/13/24 0820 Height,Weight and Vital Signs: Height 5 ft 8 in Weight 66.224 kg Vital Signs Temperature 98.3 F 11/13/24 08:12 Pulse Rate 58 11/13/24 08:12 Respiratory Rate 16 11/13/24 08:12 Blood Pressure 157/69 H 11/13/24 08:12 Pulse Oximetry 100 11/13/24 08:12 Oxygen Delivery Method Room Air 11/13/24 08:12 Temperature 98.3 F 11/13/24 08:12 Pulse Rate 58 11/13/24 08:12 Respiratory Rate 16 11/13/24 08:12 Blood Pressure 157/69 H 11/13/24 08:12 Pulse Oximetry 100 11/13/24 08:12 Oxygen Delivery Method Room Air 11/13/24 08:12 Airway Mallampati Class: I TM Dist: >3cm Neck ROM: Full Loose/Missing/Broken Teeth: Yes (Edentulous top jaw, multiple missing teeth bottom jaw) Heart: S1S2 Lungs: CTAB Assessment and Plan Assessment Anesthesia Assessment: Anesthesia Plan Discussed and Chart Reviewed Final Anesthetic Review Family History of Problems with Anesthesia: No History of Problems with Anesthesia: No NPO: Yes ASA Class: III Final Preanesthetic Review: No Changes in Pt Med Stat, Meds/Allgs Chart Reviewed, Consent Obtained/Reviewed and Anes Risks/Benef Reviewed Patient Risk: Intermediate Procedure Risk: Low Anesthetic Plan Anesthetic Plan: MAC: and Agree w/ Assess. and Plan Disposition: Standard PACU
[2024-11-13] MEDS: Phenylephrine HCL 2.5% Oph SoL 2 ML BOTTLE 1 DROP EYE-LEFT ×2 (08:29→08:34)
[2024-11-13] MEDS: Cyclopentolate 1 % Ophth Sol 2 ML DRPBTL 1 DROP EYE-LEFT ×2 (08:29→08:33)
[2024-11-13] MEDS: Tropicamide 1 % Ophth Sol 3 ML BTL 1 DROP EYE-LEFT ×2 (08:31→08:39)
[2024-11-13] MEDS: Ketorolac Tromethamine 0.5% Op 10 ML DROPS 1 DROP EYE-LEFT ×2 (08:31→08:38)
--- NOTE | 2024-11-13 08:37 | MHC.SHP ---
Pre-Procedural Eval Section A - 24 Hr Update-Section A only Date of Service: 11/13/24 The patient is an INPATIENT: No Changes since office visit: No Cold of Flu in the past 2 weeks, No New Medical Problems, No Changes in Medication and No Patient answered all questions The patient has been examined within 24 hours of the surgical procedure. The History & Physical has been completed within 30 days and I have reviewed it.: Yes Section B - Complete if H&P > 30 days Chief Complaint: Age-related nuclear cataract, left eye Allergies: Allergies Allergy/AdvReac Type Severity Reaction Status Date / Time lisinopril [LISINOPRIL] Allergy Unknown UNKNOWN Verified 11/13/24 08:11 Plan Diagnosis/Plan: Unchanged I have reviewed the history and physical and performed a pertinent physical examination on my patient. No changes have occurred unless specified. Time Spent With Patient Time: Total time managing care of this patient today ____ minutes.
--- NOTE | 2024-11-13 08:37 | HO.PNOPHT ---
Ophthalmology Procedure Procedure Date of Service: 11/13/24 Ophthalmology Viscoelastic: Healon Duet Dual Pack Pro Ophthalmology Lenses: IOL Acrysof MP - [id number] (19) Procedure Notes: PREOPERATIVE DIAGNOSIS: Decreased visual acuity left eye secondary to cataract POSTOPERATIVE DIAGNOSIS: Same PROCEDURE: Left cataract extraction with intraocular lens insertion with synichialysis SURGEON: Asif Valle M.D. ANESTHESIA: Topical/MAC ESTIMATED BLOOD LOSS: None COMPLICATIONS: None After obtaining informed consent, the patient was brought to the operation room suite and placed in the supine position. After adequate sedation per anesthesia, topical drops of Tetracaine were given to the left eye. The eye was then prepped and draped in the usual sterile fashion. The operating room microscope was then positioned over the operative eye and a lid speculum placed. A paracentesis was created. Viscoelastic was then instilled into the anterior chamber . A three plane incision was then created temporally, utilizing a 2.85 mm keratome. Capsulotomy forceps were then utilized to create a circular tear capsulotomy. Hydrodissection and hydrodelineation were carried out until adequate mobilization of the nucleus occurred. Phacoemulsification was then utilized to remove the dense central nucleus followed by removal of the cortical material utilizing the automated aspiration irrigation unit. Viscoat elastic was instilled into the posterior capsular bag followed by placement of a posterior chamber intraocular lens without difficulty. The residual Viscoat elastic was then removed utilizing the automated IA machine. The wound was check and found to be watertight. The patient tolerated the procedure well and the lid speculum was removed. Intracameral injection of Vigamox 0.1 mL followed by a subtenon injection of Kenalog-40 0.2 mL were administered. The patient will be seen in the a.m.
--- NOTE | 2024-11-13 08:42 | PC.NURSE ---
Doctor took patient to OR prior to completion of pre-op drop administration.
[2024-11-13 09:12] VITALS: BP 149/69; PULSE 56; RESP 17; TEMP 36.8; O2SAT 99
== END 2024-11-13 09:16 | disposition home or self-care (01) ==
PROVIDERS: PCP Internal Medicine; Visit Provider Ophthalmology
PROC: (CPT 66985; principal; 2024-11-13 09:00)
DX: H25.12 Age-related nuclear cataract, left eye (principal); H54.7 Unspecified visual loss; H21.502 Unspecified adhesions of iris, left eye; H18.413 Arcus senilis, bilateral; H11.153 Pinguecula, bilateral; H04.123 Dry eye syndrome of bilateral lacrimal glands; I10 Essential (primary) hypertension; G62.9 Polyneuropathy, unspecified; I25.10 Atherosclerotic heart disease of native coronary artery without angina pectoris; Z95.5 Presence of coronary angioplasty implant and graft; Z95.1 Presence of aortocoronary bypass graft; Z90.5 Acquired absence of kidney; Z85.528 Personal history of other malignant neoplasm of kidney; Z79.82 Long term (current) use of aspirin; Z79.1 Long term (current) use of non-steroidal anti-inflammatories (NSAID); Z79.899 Other long term (current) drug therapy; Z88.8 Allergy status to other drugs, medicaments and biological substances
CPT/HCPCS: 66984; J2250; J3301; V2630

== ENCOUNTER 2024-11-27 07:24 | Day surgery (SDC) | payer MEDICARE, BC, SELFPAY ==
[2024-11-08 10:33] VITALS: BMI 22.2
[2024-11-27] MEDS: Lactated Ringers 500 ML 50 ML IV (08:05)
[2024-11-27] MEDS: Ketorolac Tromethamine 0.5% Op 5 ML DROPS 1 DROP EYE-RIGHT ×3 (08:06→08:17)
[2024-11-27] MEDS: Phenylephrine HCL 2.5% Oph SoL 2 ML BOTTLE 1 DROP EYE-RIGHT ×3 (08:06→08:23)
[2024-11-27] MEDS: Tetracaine HCl/PF 0.5% Oph Sol 4 ML DROPS 1 DROP EYE-RIGHT (08:06)
[2024-11-27] MEDS: Cyclopentolate 1 % Ophth Sol 2 ML DRPBTL 1 DROP EYE-RIGHT ×3 (08:06→08:18)
[2024-11-27] MEDS: Tropicamide 1 % Ophth Sol 3 ML BTL 1 DROP EYE-RIGHT ×3 (08:06→08:17)
--- NOTE | 2024-11-27 08:27 | HO.ANESPROP2 ---
Documented by User: Terrie Baptiste NP 11/23/24 14:07 HPI - Anesthesia Eval Consult details Narrative: 78yo M for Right Cataract Extraction IOL Insertion Left eye 11/13/24: Midaz 1 CAD s/p CABG x 5 PMFSH Active Problems Active Problems: All Active Problems Neuropathy (Acute) Cerebellar atrophy (Acute) Ataxia (Acute) Vitamin D deficiency (Acute) Asthma (Acute) Hyperlipidemia (Acute) Hypertension (Acute) CAD (coronary atherosclerotic disease) (Acute) Follow-up exam, 3-6 months since previous exam (Acute) LVH (left ventricular hypertrophy) (Acute) First degree AV block (Acute) Traumatic subconjunctival hemorrhage of left eye (Acute) Cataract (Acute) Preoperative clearance (Acute) Urinary retention (Acute) DVT (deep venous thrombosis) (Acute) Carcinoid tumor (Acute) Past Medical History Medical History (Updated 11/08/24 @ 10:12 by Brii Bravo RN) Mixed hyperlipidemia CAD (coronary artery disease) CVA (cerebral vascular accident) Atherosclerosis of [place] coronary artery of [place] heart without angina pectoris LVH (left ventricular hypertrophy) First degree AV block Traumatic subconjunctival hemorrhage of left eye Cataract Preoperative clearance Renal cell cancer Urinary retention DVT (deep venous thrombosis) Carcinoid tumor Fall Family History Family history of problems with anesthesia: No Surgical History Surgical History (Updated 11/08/24 @ 10:12 by Brii Bravo RN) S/P CABG x 5 History of coronary artery stent placement History of left nephrectomy History of Problems with Anesthesia: No Social History Social History Unable to assess alcohol history related to: Unknown Patient Tobacco Use Status: Former Tobacco user Advance Directives: No Advance Directives Information Provided: Yes Advance Directives on File: No Nutrition Risks: No Nutritional Risk Meds Allergies Allergy/AdvReac Type Severity Reaction Status Date / Time lisinopril [LISINOPRIL] Allergy Unknown UNKNOWN Verified 11/13/24 08:11 Home Medications ?Medication ?Instructions ?Recorded ?Confirmed ?Last Taken ?Type memantine 5 mg tablet 5 mg PO DAILY 09/06/24 11/13/24 Unknown History Saccharomyces boulardii 250 mg 250 mg PO BID 10/30/24 11/13/24 Unknown History capsule (Digest Probiotic (S.boulardii)) albuterol sulfate 90 mcg/actuation 2 inh inhalation Q4H PRN Shortness 10/30/24 11/13/24 Unknown History breath activated powder inhaler Of Breath Or Wheezing amoxicillin 500 mg capsule 500 mg PO QID 10/30/24 11/07/24 Unknown History aspirin 81 mg tablet,delayed 81 mg PO DAILY 10/30/24 11/13/24 Unknown History release (Adult Low Dose Aspirin) cholecalciferol (vitamin D3) 50 50 mcg PO DAILY 10/30/24 11/13/24 Unknown History mcg (2,000 unit) capsule cyanocobalamin (vitamin B-12) 1,000 mcg PO DAILY 10/30/24 11/13/24 Unknown History 1,000 mcg tablet mometasone 110 mcg/actuation(30 2 inh inhalation DAILY 10/30/24 11/13/24 11/13/24 History doses) breath activated powder inhaler montelukast 10 mg tablet 10 mg PO BEDTIME 10/30/24 11/13/24 Unknown History (Singulair) cranberry 500 mg capsule 500 mg PO BID 11/07/24 11/13/24 Unknown History Exam Height,Weight and Vital Signs: Height 5 ft 8 in Weight 66.224 kg Assessment and Plan Assessment Anesthesia Assessment: Chart Reviewed Final Anesthetic Review Family History of Problems with Anesthesia: No History of Problems with Anesthesia: No Documented by User: Bijal Garay DO 11/27/24 08:30 [facility] Past Medical History Medical History (Updated 11/08/24 @ 10:12 by Brii Bravo RN) Mixed hyperlipidemia CAD (coronary artery disease) CVA (cerebral vascular accident) Atherosclerosis of [place] coronary artery of [place] heart without angina pectoris LVH (left ventricular hypertrophy) First degree AV block Traumatic subconjunctival hemorrhage of left eye Cataract Preoperative clearance Renal cell cancer Urinary retention DVT (deep venous thrombosis) Carcinoid tumor Fall Family History Family history of problems with anesthesia: No Surgical History Surgical History (Updated 11/08/24 @ 10:12 by Brii Lawrence, RN) S/P CABG x 5 History of coronary artery stent placement History of left nephrectomy History of Problems with Anesthesia: No Social History Social History Unable to assess alcohol history related to: Unknown Patient Tobacco Use Status: Former Tobacco user Advance Directives: No Advance Directives Information Provided: Yes Advance Directives on File: No Nutrition Risks: No Nutritional Risk Meds Allergies Allergy/AdvReac Type Severity Reaction Status Date / Time lisinopril [LISINOPRIL] Allergy Unknown UNKNOWN Verified 11/13/24 08:11 Home Medications ?Medication ?Instructions ?Recorded ?Confirmed ?Last Taken ?Type memantine 5 mg tablet 5 mg PO DAILY 09/06/24 11/13/24 Unknown History Saccharomyces boulardii 250 mg 250 mg PO BID 10/30/24 11/13/24 Unknown History capsule (Digest Probiotic (S.boulardii)) albuterol sulfate 90 mcg/actuation 2 inh inhalation Q4H PRN Shortness 10/30/24 11/13/24 Unknown History breath activated powder inhaler Of Breath Or Wheezing amoxicillin 500 mg capsule 500 mg PO QID 10/30/24 11/07/24 Unknown History aspirin 81 mg tablet,delayed 81 mg PO DAILY 10/30/24 11/13/24 Unknown History release (Adult Low Dose Aspirin) cholecalciferol (vitamin D3) 50 50 mcg PO DAILY 10/30/24 11/13/24 Unknown History mcg (2,000 unit) capsule cyanocobalamin (vitamin B-12) 1,000 mcg PO DAILY 10/30/24 11/13/24 Unknown History 1,000 mcg tablet mometasone 110 mcg/actuation(30 2 inh inhalation DAILY 10/30/24 11/13/24 11/13/24 History doses) breath activated powder inhaler montelukast 10 mg tablet 10 mg PO BEDTIME 10/30/24 11/13/24 Unknown History (Singulair) cranberry 500 mg capsule 500 mg PO BID 11/07/24 11/13/24 Unknown History Exam Exam Date and Time: 11/27/24 0820 Airway Mallampati Class: I TM Dist: >3cm Neck ROM: Full Loose/Missing/Broken Teeth: Yes (edentulous top jaw, multiple missing teeth bottom jaw) Heart: S1S2 Lungs: CTAB Assessment and Plan Assessment Anesthesia Assessment: Anesthesia Plan Discussed and Chart Reviewed Final Anesthetic Review Family History of Problems with Anesthesia: No History of Problems with Anesthesia: No NPO: Yes ASA Class: III Final Preanesthetic Review: No Changes in Pt Med Stat, Meds/Allgs Chart Reviewed, Consent Obtained/Reviewed and Anes Risks/Benef Reviewed Patient Risk: Intermediate Procedure Risk: Low Anesthetic Plan Anesthetic Plan: MAC: and Agree w/ Assess. and Plan Disposition: Standard PACU
[2024-11-27 08:28] VITALS: BP 136/67; PULSE 51; RESP 18; TEMP 36.8; O2SAT 100
--- NOTE | 2024-11-27 09:04 | P.PCNO_ITS ---
Ophthalmology Procedure Procedure Date of Service: 11/27/24 Ophthalmology Viscoelastic: Healon Duet Dual Pack Pro Ophthalmology Lenses: IOL Acrysof MP - MA60AC (20.5) Procedure Notes: PREOPERATIVE DIAGNOSIS: Decreased visual acuity right eye secondary to cataract POSTOPERATIVE DIAGNOSIS: Same PROCEDURE: Right cataract extraction with intraocular lens insertion SURGEON: Asif Valle M.D. ANESTHESIA: Topical/MAC ESTIMATED BLOOD LOSS: None COMPLICATIONS: None After obtaining informed consent, the patient was brought to the operating room suite and placed in the supine position. After adequate sedation per anesthesia, topical drops of Tetracaine were given to the right eye. The eye was then prepped and draped in the usual sterile fashion. The operating room microscope was then positioned over the operative eye and a lid speculum placed. A paracentesis was created. Viscoelastic was then instilled into the anterior chamber. A three plane incision was then created temporally, utilizing a 2.85 mm keratome. Capsulotomy forceps were then utilized to create a circular tear capsulotomy. Hydrodissection and hydrodelineation were carried out until adequate mobilization of the nucleus occurred. Phacoemulsification was then utilized to remove the dense central nu cleus followed by removal of the cortical material utilizing the automated aspiration irrigation unit. Viscoelastic was instilled into the posterior capsular bag followed by placement of a posterior chamber intraocular lens without difficulty. The residual Viscoelastic was then removed utilizing the automated IA machine. The wound was checked and found to be watertight. The patient tolerated the procedure well and the lid speculum was removed. Intracameral injection of Vigamox 0.1 mL followed by a subtenon injection of Kenalog-40 0.2 mL were administered. The patient will be seen in the a.m.
--- NOTE | 2024-11-27 09:04 | MHC.SHP ---
Pre-Procedural Eval Section A - 24 Hr Update-Section A only Date of Service: 11/27/24 The patient is an INPATIENT: No Changes since office visit: No Cold of Flu in the past 2 weeks, No New Medical Problems, No Changes in Medication and No Patient answered all questions The patient has been examined within 24 hours of the surgical procedure. The History & Physical has been completed within 30 days and I have reviewed it.: Yes Section B - Complete if H&P > 30 days Chief Complaint: Age-related nuclear cataract, right eye Allergies: Allergies Allergy/AdvReac Type Severity Reaction Status Date / Time lisinopril [LISINOPRIL] Allergy Unknown UNKNOWN Verified 11/27/24 08:33 Plan Diagnosis/Plan: Unchanged I have reviewed the history and physical and performed a pertinent physical examination on my patient. No changes have occurred unless specified. Time Spent With Patient Time: Total time managing care of this patient today ____ minutes.
[2024-11-27 09:36] VITALS: BP 146/78; PULSE 55; RESP 18; TEMP 36.5; O2SAT 100
== END 2024-11-27 09:40 | disposition home or self-care (01) ==
PROVIDERS: PCP Internal Medicine; Visit Provider Ophthalmology
PROC: (CPT 66985; principal; 2024-11-27 09:30)
DX: H25.11 Age-related nuclear cataract, right eye (principal); H52.4 Presbyopia; H18.413 Arcus senilis, bilateral; H11.153 Pinguecula, bilateral; H04.123 Dry eye syndrome of bilateral lacrimal glands; I10 Essential (primary) hypertension; I25.10 Atherosclerotic heart disease of native coronary artery without angina pectoris; G62.9 Polyneuropathy, unspecified; J45.909 Unspecified asthma, uncomplicated; Z95.1 Presence of aortocoronary bypass graft; Z85.528 Personal history of other malignant neoplasm of kidney; Z90.5 Acquired absence of kidney; Z79.82 Long term (current) use of aspirin; Z79.899 Other long term (current) drug therapy; Z87.891 Personal history of nicotine dependence
CPT/HCPCS: 66984; J2250; J3301; V2630

== ENCOUNTER 2024-12-12 14:38 | Outpatient (AMB) | payer MEDICARE, BC, SELFPAY ==
--- NOTE | 2024-12-12 14:40 | A.OFFPC_ITS ---
Vital Signs 12/12/24 14:41 Height 5 ft 8 in Weight 138 lb BMI 21.0 BP 140/80 H Respiration 16 Pulse 60 Pulse Source Pulse Oximeter Temp 97.9 F Temp Source Temporal Artery Scan Pulse Oximetry (%) 97 Oxygen Delivery Method Room Air Intake Visit Reasons: follow up - see comments Strap Sewer Required: No Accompanied by: Grand Child Allergies lisinopril [LISINOPRIL] Allergy (Unknown, Verified 12/12/24 14:41) UNKNOWN Tobacco use date assessed: 12/12/24 Fall risk assessment: 2 + Falls in past year Last assessed Fall Risk: 12/12/24 Dental Screening Dental Screen Date: 12/12/24 Did you have a dental visit in the last 12 months?: No Did you have a dental problem in the last 6 months where you did not have access to dental care?: No [facility] Medical History (Updated 12/12/24 @ 15:12 by Sebastián Fitch MD) Cerebellar degeneration Mixed hyperlipidemia CAD (coronary artery disease) CVA (cerebral vascular accident) Atherosclerosis of [place] coronary artery of [place] heart without angina pectoris LVH (left ventricular hypertrophy) First degree AV block Traumatic subconjunctival hemorrhage of left eye Cataract Preoperative clearance Renal cell cancer Urinary retention DVT (deep venous thrombosis) Carcinoid tumor Fall Surgical History History of colonoscopy (~11/25/17) S/P CABG x 5 History of coronary artery stent placement History of left nephrectomy Family History (Updated 12/12/24 @ 14:53 by BIN Solis) Father Stroke Mother No problems noted. Social History Household Members Other:: granddaughter lives below and takes care of patient Housing: Apartment Are you a primary weekend caregiver to a significant other at home: No Do you presently have visiting nurse or other home services: No Unable to assess alcohol history related to: Unknown Patient Tobacco Use Status: Former Tobacco user service: No Current occupational status: retired Cognitive needs: Yes (wheelchair) Hearing needs: No Vision needs: No Questionnaire PHQ-9 Over the last 2 weeks, how often have you been bothered by any of the following problems? 1. Little interest or pleasure in doing things: not at all 2. Feeling down, depressed, or hopeless: not at all 3. Trouble falling or staying asleep, or sleeping too much: not at all 4. Feeling tired or having little energy: not at all 5. Poor appetite or overeating: not at all 6. Feeling bad about yourself - or that you are a failure or have let yourself or your family down: not at all 7. Trouble concentrating on things, such as reading the newspaper or watching television: not at all 8. Moving or speaking so slowly that other people could have noticed. Or the opposite - being so fidgety or restless that you have been moving around a lot more than usual: not at all 9. Thoughts that you would be better off or of hurting yourself in some way: not at all Total score: 0 Source: Developed by Drs. Isaías Hassan, Cyndi Braun, Fabrizio Bagley and colleagues, with an educational clarissa from [employer]. Thrive Questionnaire Date Thrive assessed: 12/12/24 I am a: Patient What is your living situation today?: I have a steady place to live Within the past 12 months, did the food you bought not last and you didn't have the money to get more?: Never true Within the past 12 months, did you worry whether your food would run out before you got money to buy more?: Never true Do you have trouble paying for medicines?: No Do you have trouble getting transportation to medical appointments?: No Do you have trouble paying your heating and electricity bill?: No Do you have trouble taking care of your child, family member or friend?: No Do you have trouble with day-to-day activities such as bathing, preparing meals, shopping, managing finances, etc.?: No Are you currently unemployed and looking for a job?: No Are you interested in more education?: No Please select the resources that you would like help with: None THRIVE Score: 0 AUDIT C Alcohol Use Questionnaire (AUDIT-C) 1. How often do you have a drink containing alcohol?: Never 3. How often do you have six or more drinks on one occasion?: Never Total Score: 0 BG-7 AMB Questionnaire BG-7 Date BG - 7 assessed: 04/22/25 Feeling nervous, anxious, or on edge: 0 = Not at all Not being able to stop or control worryin = Not at all Worrying too much about different things: 0 = Not at all Trouble relaxin = Not at all Being so restless that it is hard to sit still: 0 = Not at all Becoming easily annoyed or irritable: 0 = Not at all Feeling afraid as if something awful might happen: 0 = Not at all Total BG-7 score (0-4 normal; 5-9 mild; 10-14 moderate; 15-21 severe): 0 Source: Developed by Drs. Isaías Hassan, Cyndi Braun, Fabrizio Bagley and colleagues, with an educational clarissa from [employer]. Physical exam (Primary Care) Vital Signs: Last Vital Signs Temp 97.9 F 12/12/24 14:41 Pulse 60 12/12/24 14:41 Resp 16 12/12/24 14:41 BP 140/80 H 12/12/24 14:41 Pulse Ox 97 12/12/24 14:41 Oxygen Delivery Method Room Air 12/12/24 14:41 BMI result Body Mass Index 21.0 Tobacco/Smoking Status: Tobacco use Status Tobacco use date assessed 12/12/24 12/12/24 14:52 Patient Tobacco Use Status Former Tobacco user 12/12/24 14:52 PHQ-9: PHQ-9 Score PHQ-9: Total score 0 12/12/24 14:52 Thrive Assessment: Date of Thrive Assessment Date Thrive assessed 12/12/24 12/12/24 14:52 Coding Level of Care Code Est Pt Level 4 (93923) Complex EM visit Add On G2211 Diagnoses Cerebellar degeneration G31.9 Assessment & Plan Assessment & Plan (1) Cerebellar degeneration: Code(s): G31.9 - Degenerative disease of nervous system, unspecified Category: Medical Plan: Condition is stable. Using a motorized wheel chair to ambulate.Grand daughter is very supportive. Patient sees a neurologist at [place]. Plan History of Present Illness The patient is a 78-year-old male presenting with cerebellar degeneration for follow-up. His condition started around four years ago with primary symptoms of balance issues, leading to the use of a wheelchair for extended distances. Progressive speech disturbance manifests as slurred speech. The patient also experiences occasional dizziness contributing to his imbalance. Initially independent and able to drive, safety concerns have led to cessation of driving. He successfully self-feeds without swallowing difficulties, though occasional neuropathic pain disrupts his sleep. Smoking cessation was achieved two decades ago. Cataract surgeries were successful, and cardiology evaluations addressed irregular heartbeats. Social History - Lives alone with occasional help from family, particularly a granddaughter for meals. 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 - Has a past history of smoking; he quit approximately 20 years ago. - Does not consume alcohol. - Regularly uses a wheelchair for long distances due to balance issues. - Engages in internet use and watching television for leisure. Review of Systems - Neurological: Reports balance problems, dizziness, and slurred speech. Denies difficulty with mastication or swallowing. - Musculoskeletal: Reports occasional usage of a wheelchair for long distances. Denies use of a cane at home. - Cardiovascular: Denies current tobacco use; however, a history of irregular heartbeats has been evaluated. - Sleep: Reports neuropathic pain occasionally affecting sleep quality. Physical Exam General: Cooperative and healthy appearing Nutritional Appearance: Well nourished Orientation/consciousness: Patient oriented x3 Limitations: No limitations Head: Normal to inspection General: Appearance normal, both eyes and all related structures Neck: Normal visual inspection Chest: Normal palpation of entire chest wall Respiratory: N ormal respiratory effort Neurology: Patient oriented x3, diagnosed with cerebellar degeneration affecting balance and causing dizziness. Speech is slowly slurring over time. No drooping observed. Results Plan Management of cerebellar degeneration includes current observation, emphasizing safety with mobility aids such as using a walker at home and a wheelchair for long distances. The patient's successful cataract surgeries entail no immediate visual concerns. Continued follow-up with neurology and cardiology is advised to manage cerebellar symptoms and heart rhythm irregularities, ensuring no additional treatment is required. The current pharmaceutical regimen involves a streamlined refill process for needed medications. Patient was informed and verbally consented to the use of an ambient scribe for clinic note documentation during this visit. Discussion Notes We discussed the management and treatment options for cerebellar degeneration, focusing on the limitations of current therapy. I ensured the patient understood the role of safety measures and appropriate use of mobility aids. Regular follow-up with neurology will help to monitor condition progression and assess the need for any treatment adjustments. We addressed his successful status post- cataract surgery, reinforcing no immediate ophthalmic concerns. Regarding pharmacy and prescription refilling, the patient was guided on efficiently managing prescription renewals. Regular cardiovascular follow-up was discussed, emphasizing the importance of continual monitoring of previously noted arrhythmias. Patient Instructions - Use a walker at home and a wheelchair for long distances. - Continue taking your medications as directed. - Follow up with your neurologist and mid level java developer as scheduled. - For refills, call your pharmacy when medications are low. - Be cautious of fluctuations in your balance, and ask for assistance with mobility if needed. - Continue your current diet and leisure activities. - Report any new or worsening symptoms to your healthcare provider. - Maintain good sleeping habits and take ibuprofen for neuropathic pain if necessary.
[2024-12-12 14:41] VITALS: BP 140/80; PULSE 60; RESP 16; TEMP 36.6; O2SAT 97; BMI 21.0
== END 2024-12-12 15:13 | disposition home or self-care (01) ==
LOC: HO.HMCSH 14:38
PROVIDERS: PCP Internal Medicine; Visit Provider Internal Medicine
DX: G31.9 Degenerative disease of nervous system, unspecified (principal)

== ENCOUNTER → 2024-12-12 14:38 | Outpatient (BNVA) | payer MEDICARE, BC, SELFPAY | PROVIDERS: PCP Internal Medicine; Visit Provider Internal Medicine | DX: G31.9 Degenerative disease of nervous system, unspecified (principal) | CPT/HCPCS: 99212 ==